=== PATIENT | female | born 2000 | race Two or more races ===

== ENCOUNTER 2024-08-22 19:29 | Emergency (ER) | payer MEDICAID, SELFPAY ==
[2024-08-22 19:45] VITALS: BP 145/79; PULSE 89; RESP 18; TEMP 36.8; O2SAT 98
--- NOTE | 2024-08-22 19:50 | XR_ITS ---
Examination: Complete OB ultrasound, less than 14 weeks, transabdominal Date and time of exam: August 22, 2024 at 10:32 PM Indications vaginal bleeding and pelvic cramping beginning 4 hours ago Technique: Obstetrical ultrasound images less than 14 weeks performed via transabdominal imaging Findings: A normal shaped single intrauterine gestation is present in the uterus. pole 3.7 cm corresponds to 10 weeks 5 days gestational age Cardiac motion 167 BPM Posterior uterine mass 3.7 cm Ovaries obscured by bowel gas Ultrasonographic survey of visible and placental structures unremarkable. Amniotic fluid volume appears appropriate for this estimated gestational age. Impression: Viable intrauterine gestation 10 weeks 5 days.
[2024-08-22 20:31] LABS: Collection Type, Urine Clean Catch
[2024-08-22 20:48] LABS: Bilirubin,Urine Negative (Negative); Blood,Urine Negative (Negative); Clarity,Urine Turbid (Clear/Hazy); Color,Urine Yellow (Lt Yel-Yel); Glucose, Urine Negative (Negative); Hyaline Casts,Urine < 1 /hpf (0-1); Ketones,Urine Negative (Negative); Leukocyte Esterase,Urine Positive (Negative); Nitrite,Urine Negative (Negative); PH,Urine 5.5 (5.0-7.0); Protein,Urine Trace (Neg - Trace); RBC,Urine 3 /hpf (0-3); Specific Gravity,Urine 1.028 (1.001-1.035); Squamous Epithelial Cell,Urine 13 /hpf (0-5); Urobilinogen,Urine Negative mg/dL (0.0-1.0); WBC,Urine 3 /hpf (0-5)
--- NOTE | 2024-08-22 20:48 | PD.EDVAGBL ---
ED OB Contraction Preg RMI/HPI General Chief complaint: Vaginal Bleeding Stated complaint: 12 WEEKS , VAGINAL BLEEDING Time Seen by Provider: 08/22/24 19:49 Arrival date/time: 08/22/24 19:29 24F at approximately 12 weeks and with no significant PMH presents to ED with 1 day of vaginal bleeding and pelvic cramping. Patient denies dysuria. Limitations: no limitations Related Data Allergies Allergy/AdvReac Type Severity Reaction Status Date / Time No Known Allergies Allergy Verified 08/22/24 19:32 Review of Systems Review of Systems Systems Reviewed: All systems reviewed, normal except as documented Constitutional Constitutional: Reports system reviewed and no additional complaints, except as documented, Denies fever(s) and Denies headache(s) ENT Ears, Nose, Mouth, and Throat: Denies disequilibrium and Denies headache(s) Cardiovascular Cardiovascular: Reports system reviewed and no additional complaints, except as documented, Denies chest pain and Denies dyspnea Respiratory Respiratory: Reports system reviewed and no additional complaints, except as documented, Denies cough and Denies dyspnea Gastrointestinal Gastrointestinal: Reports system reviewed and no additional complaints, except as documented, Denies abdominal pain, Denies nausea and Denies vomiting Genitourinary Genitourinary: Reports as per HPI, Reports abnormal vaginal bleeding and Reports pelvic pain Neurologic Neurologic: Reports system reviewed and no additional complaints, except as documented, Denies confusion, Denies disequilibrium and Denies headache(s) Psychiatric Psychiatric: Denies confusion Past Medical History Social History SMOKING STATUS: Never smoker ED Exam General Limitations: Present no limitations General appearance: Present alert and in no apparent distress Head Head exam: Present atraumatic Eye Eye exam: Present normal appearance, PERRL and EOMI ENT ENT exam: Present normal exam, normal oropharynx and mucous membranes moist Neck Neck exam: Present normal inspection, full ROM and trachea midline Chest Chest inspection: Present normal inspection and symmetric chest wall rise Respiratory Respiratory exam: Present normal lung sounds bilaterally Cardiovascular Cardiovascular exam: Present regular rate, normal rhythm and normal heart sounds Abdominal Exam Abdominal exam: Present soft and normal bowel sounds Extremities Exam Extremities exam: Present normal inspection and full ROM Back Exam Back exam: Present normal inspection and full ROM Neurological Exam Neurological exam: Present alert, oriented X3 and CN II-XII intact Psychiatric Psychiatric exam: Present normal affect and normal mood Skin Skin exam: Present warm, dry, intact and normal color Course Quality Measures none Orders Category Date Time Status US OB <= 14 weeks fetus Stat Exams 08/22/24 19:50 Completed ABO/RH Type Stat Lab 08/22/24 20:34 Completed Beta HCG,Quantitative Stat Lab 08/22/24 20:34 Completed CBC Stat Lab 08/22/24 20:34 Completed CMP [Comprehensive Metabolic Panel] Stat Lab 08/22/24 20:34 Completed UA [Urinalysis] Stat Lab 08/22/24 20:25 Completed Urine Culture Stat Lab 08/22/24 19:50 Received Vital Signs Vital signs: Vital Signs Temperature 98.2 F 08/22/24 19:45 Pulse Rate 89 08/22/24 19:45 Respiratory Rate 18 08/22/24 19:45 Blood Pressure 145/79 H 08/22/24 19:45 Pulse Oximetry (%) 98 08/22/24 19:45 Oxygen Delivery Method Room Air 08/22/24 19:45 O2 at 98% on RA and WNLs Vaginal Bleeding MDM Narrative MDM Narrative: 24F at approximately 12 weeks and with no significant PMH presents to ED with 1 day of vaginal bleeding and pelvic cramping. Patient denies dysuria. Physical exam reveals well-appearing female. Patient is afebrile, calm, and alert. US normal IUP with normal FHR. Beta HCG WNLs. No leukocytosis or gross anemia. CMP unremarkable. UA contaminated but no gross UTI. Blood type A+/ US did not a 3.7 cm uterine mass, which is likely a fibroid, though radiologist did not comment on it. This is likely cause of bleeding. Patient data External records reviewed:: None Clinical information provided by:: patient Social determinants that could affect healthcare access:: none Patient has the following chronic illnesses:: none How is presenting disease/condition affected by chronic disease/condition?: no chronic disease Evaluation data The following diagnostics were reviewed and interpreted by me:: lab results and radiology exam(s) Lab and/or radiology exams considered but not ordered:: ordered Interpretation Summary: above Medications / Prescriptions Medications or Prescriptions considered but not ordered:: not ordered Medication administrations:: n/a Consultations Consultation(s) initiated? (list below): No Diagnosis Vaginal Bleeding Differential Diagnosis: missed , threatened , dysfunctional uterine bleeding, menometrorrhagia, incomplete , ectopic without intrauterine and vaginal bleeding Most likely diagnosis given after review of the tests above:: vaginal bleeding Admission Indicated Admission indicated?: not indicated Admission Request Was there a request for admission?: No Disposition Plan Disposition Plan: Discharge Discharge Attestation Discharge Attestation: The patient and all family members were given an opportunity to ask questions and understood the discharge instructions. Discharge instructions specifically effects, indications for sooner follow up or return to the emergency department, and the expected course of current diagnosis. Patient condition: Stable Discharge Plan Plan Patient Disposition: HOME (Self Care) Disposition Comment: Stable Prescriptions/Referrals Referrals: Dinh Marin MD [Primary Care Provider] - In 1 week Problem List Clinical Impression: Vaginal bleeding Patient/Caregiver Discharge Instructions Education Materials: Understanding Uterine Bleeding Additional Instructions: Please follow-up with PCP/OBGYN within 24-48 hours and return immediately if symptoms worsen. Print Language: Mauritanian Stand Alone Forms: Patient Portal Info Letter LYLY/RADHA Supervising Physician LYLY/RADHA Supervising Physician: Dr. Torrez
[2024-08-22 21:08] LABS: Basophils % (Auto) 0 % (0-2.5); Eosinophils # (Auto) 0.1 Thou/mm3 (0.0-0.5); Eosinophils % (Auto) 1 % (0-10); Hematocrit 35.5 % (36.0-46.0); Immature Granulocytes % (Auto) 0 % (0-0); Immature Granulocytes Auto 0.04 Thou/mm3 (0.00-0.00); Lymphocytes # (Auto) 3.2 Thou/mm3 (1.0-4.8); Lymphocytes % (Auto) 31 % (10-50); Mean Corpuscular HGB Conc 33.8 g/dl (31.0-37.0); Mean Corpuscular Hemoglobin 30.8 pg (25.0-35.0); Mean Corpuscular Volume 91 fL (80-100); Monocytes # (Auto) 0.6 Thou/mm3 (0.0-0.8); Monocytes % (Auto) 6 % (0-12); Neutrophils # (Auto) 6.3 Thou/mm3 (1.8-7.7); Neutrophils % (Auto) 61 % (37-80); Nucleated Red Blood Cell % 0 /100 WBC (0); Platelet Count 227 Thou/mm3 (140-440); RDW Standard Deviation 41.6 fL (36.4-46.3); White Blood Count 10.2 Thou/mm3 (3.6-11.0)
[2024-08-22 21:45] LABS: Alanine Aminotransferase 8 U/L (10-49); Albumin, Serum 4.2 gm/dL (3.5-5.0); Albumin/Globulin Ratio 1.5 (1.2-2.2); Alkaline Phosphatase 66 U/L (46-116); Anion Gap 8 (7-16); Aspartate Amino Transferase 10 U/L (0-34); BUN/Creatinine Ratio 10 Ratio (12-20); Bilirubin,Total 0.3 mg/dL (0.3-1.2); Blood Urea Nitrogen 6 mg/dL (9-23); Calcium 9.4 mg/dL (8.3-10.6); Calcium (Corrected) 9.4 mg/dL (8.5-10.1); Carbon Dioxide 22.2 mMol/L (20.0-31.0); Chloride 105 mMol/L (98-107); Creatinine (Component) 0.6 mg/dL (0.6-1.3); Estimated Creatinine Clearance 191.9 mL/min (>60); Globulin 2.8 gm/dL (2.3-3.5); Glucose 92 mg/dL (74-106); Osmolality,Calculated 267 (275-295); Potassium 3.8 mMol/L (3.4-5.1); Sodium 135 mMol/L (136-145); eGFR > 60 See Note
[2024-08-22 22:16] LABS: Beta HCG,Quantitative 95707 mIU/mL (<5.0)
== END 2024-08-23 00:26 | disposition home or self-care (01) ==
PROVIDERS: Physician Assistant; Emergency Provider Emergency Medicine; PCP Family Medicine
DX: O20.9 Hemorrhage in early pregnancy, unspecified (principal); Z3A.12 12 weeks gestation of pregnancy
CPT/HCPCS: 36415; 76801; 80053; 81001; 84702; 85025; 86900; 86901; 87086; 99284

== ENCOUNTER 2024-09-02 13:51 | Outpatient (AMB) | payer MEDICAID, SELFPAY ==
--- NOTE | 2024-09-02 14:08 | AMB.OBVISIT ---
Vital Signs 09/02/24 14:16 Height 1.68 m Height Method Measured Weight 84.141 kg Weight Measurement Method Standing Scale BMI 29.9 BP 121/77 Blood Pressure Source Automatic Cuff Blood Pressure Location Left Upper Arm Position Sitting Respiration 18 Pulse 90 Pulse Source Monitor Temp 97.7 F Temp Source Oral Pulse Oximetry (%) 97 Oxygen Delivery Method Room Air Allergies/Home Meds Allergies & Medications Allergies No Known Allergies Allergy (Verified 09/02/24 14:17) Medication Reconciliation No Known Home Medications 09/02/24 [History Confirmed 09/02/24] Intake Visit Data Collection New Patient or Established: Established Patient (seen at [facility] within 3 years) Reason for Visit:: INITIAL CARE Seen by Clinical Staff ONLY (RN/MA): No 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 1. Little interest or pleasure in doing things: not at all 2. Feeling down, depressed, or hopeless: not at all Total score: 0 PHQ-9 3. Trouble falling or staying asleep, or sleeping too much: Not at all 4. Feeling tired or having little energy: Not at all 5. Poor appetite or overeating: Not at all 6. Feeling bad about yourself - or that you are a failure or have let yourself or your family down: Not at all 7. Trouble concentrating on things, such as reading the newspaper or watching television: Not at all 8. Moving or speaking so slowly that other people could have noticed? - Or the opposite - being so fidgety or restless that you have been moving around a lot more than usual: not at all 9. Thoughts that you would be better off or of hurting yourself in some way: Not at all Total score: 0 Source: Developed by Drs. Tree Guidry, Annie Deleon, Hamlet Luna and colleagues, with an educational tasneem from [employer] Depression screen completed yes Social History Living Situation History Marital Status: Lives With: Family Housing: House Tobacco History Smoking Status: Never smoker Second Hand Smoke Exposure: No Alcohol History Alcohol Intake: Current Domestic Abuse History Do You Feel Safe at Home: Yes Past Medical History Past Medical History Have you ever been diagnosed with any of the following:
[2024-09-02 14:16] VITALS: BP 121/77; PULSE 90; RESP 18; TEMP 36.5; O2SAT 97; BMI 29.9
--- NOTE | 2024-09-02 14:22 | OBCLNT_ITS ---
Vital Signs 09/02/24 14:16 09/02/24 14:25 Height 1.68 m Height Method Measured Weight 84.141 kg Weight Measurement Method Standing Scale BMI 29.9 BP 121/77 121/77 Blood Pressure Source Automatic Cuff Blood Pressure Location Left Upper Arm Position Sitting Respiration 18 18 Pulse 90 90 Pulse Source Monitor Temp 97.7 F 97.7 F Temp Source Oral Pulse Oximetry (%) 97 97 Oxygen Delivery Method Room Air Allergies/Home Meds Allergies & Medications Allergies No Known Allergies Allergy (Verified 09/02/24 14:17) Medication Reconciliation doxylamine 10 mg-pyridoxine (vit B6) 10 mg tablet,delayed release (Diclegis) 1 tab PO BID 30 days #60 tabs 09/02/24 [Rx] ferrous sulfate 325 mg (65 mg iron) tablet 325 mg PO BID 30 days #60 tabs 09/02/24 [Rx] Intake Visit Data Collection New Patient or Established: Established Patient (seen at [facility] within 3 years) Reason for Visit:: INITIAL CARE Seen by Clinical Staff ONLY (RN/MA): No 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 1. Little interest or pleasure in doing things: not at all 2. Feeling down, depressed, or hopeless: not at all Total score: 0 PHQ-9 3. Trouble falling or staying asleep, or sleeping too much: Not at all 4. Feeling tired or having little energy: Not at all 5. Poor appetite or overeating: Not at all 6. Feeling bad about yourself - or that you are a failure or have let yourself or your family down: Not at all 7. Trouble concentrating on things, such as reading the newspaper or watching television: Not at all 8. Moving or speaking so slowly that other people could have noticed? - Or the opposite - being so fidgety or restless that you have been moving around a lot more than usual: not at all 9. Thoughts that you would be better off or of hurting yourself in some way: Not at all Total score: 0 Source: Developed by Drs. Tree Guidry, Annie Deleon, Hamlet Luna and colleagues, with an educational tasneem from [employer]. Depression screen completed yes Social History Living Situation History Marital Status: Lives With: Family Housing: House Tobacco History Smoking Status: Never smoker Second Hand Smoke Exposure: No Alcohol History Alcohol Intake: Never Domestic Abuse History Do You Feel Safe at Home: Yes Past Medical History Past Medical History Have you ever been diagnosed with any of the following: History of Present Illness HPI Narrative 24 yo for OBI. Happy with + preg test. patient had [facility] visit 08/22 for vag b leeding. sono: viable 10w5. LMP 06/26/24. EDC by sono : 03/17/25. no bleeding now. no c/o nausea . no PMH,no social habit, no surgery, taking PNV and folic acid OB Initial Visit OB Flowsheet OB Flowsheet Initial Weight: Not Recorded Date -?-?-?-?-?-?-?-?-?-?-?-?- EGA Weight Edema CTX Effacement BP Fundal ht Pres Dilation Effacement Station Visit Note Alb Glu FHR Mov 09/02/24 -?-?-?-?-?-?-?-?-?-?-?-?- 12w 2d 84.141 kg absent absent 121/77 121/77 12 24 yo g2p 0 for OBI, no bleeding or sab complaints. No PMH,no Social habit,no surgery. sono 08/22: fibroid 3.7 uterus mass. schedule Mfm sono, ob panel, NIPT,carrier screen today 24 yo for OBI, no bleed ing or sab complaints. No PMH,no Social habit,no surgery. sono 08/22: fibroid 3.7 uterus mass. schedule Mfm sono, ob panel, NIPT,carrier screen today, start iron bid, diclegesis for nausea bid 145 absent Menstrual History Menstrual reliability: definite Flow: normal Menstrual regularity: regular Monthly: Yes Age at menarche: 14 On control pills at conception: No Associated symptoms (LMP): Reports fatigue and breast tenderness OB History : 1 Infection History & Risk Evaluation History of STDs: none HIV risk evaluation: low risk Hepatitis B risk evaluation: low risk Patient or partner has history of Genital Herpes: No Genetic Screening & History Genetic Screening/Teratology Counseling - Includes patient, baby's father, or anyone in either family with: 1. Patient's age 35 years or older as of estimated date of delivery: No 2. Thalassemia (French, Syrian, Mediterranean, or Background); MCV less than 80: No 3. Neural Tube Defect (Meningomyelocele, Spina Bifida, or Anencephaly): No 4. Congenital Heart Defect: No 5. Down Syndrome: No 6. Nitin-Sachs (Ashkenazi Presybeterian, Cajun, Setswana Citizen Of [place]): No 7. Niecy Disease (Ashkenazi Presybeterian): No 8. Familial Dysautonomia (Ashkenazi Presybeterian): No 9. Sickle Cell Disease or Trait (): No 10. Hemophilia or other blood disorders: No 11. Muscular Dystrophy: No 12. Cystic Fibrosis: No 13. Mercer's Chorea: No 14. Mental Retardation/Autism: No 15. Other inherited genetic or chromosomal disorder: No 16. Maternal Metabolic Disorder (EG,TYPE 1 Diabetes, PKU): No 17. Patient or baby's father had a child with defects not listed above: No 18. Recurrent loss or a stillbirth: No 19. Medications (including supplements, vitamins, herbs or otc drugs)/illicit/recreational drugs/alcohol since last menstrual period: No 20. Any other: No Infection History 1. Live with someone with TB or exposed to TB: No 2. Rash or viral illness since last menstrual period: No 3. Hepatitis B,C: No Other (see comments) Source: [employer] [place] Review of Systems Review of Systems Systems Reviewed: All systems reviewed, normal except as documented Constitutional Constitutional: Reports fatigue Endocrine Endocrine: Reports fatigue Exam General Limitations: no limitations General Appearance: alert, in no apparent distress, comfortable, cooperative, he althy appearing, well developed and well groomed Chest Chest inspection: Present normal inspection and symmetric chest wall rise Resp Respiratory exam: Present normal lung sounds bilaterally Card Cardiovascular exam: Present regular rate, normal rhythm and normal heart sounds Abdominal Abdominal exam: Present soft and normal bowel sounds Psych Psychiatric exam: Present normal affect and normal mood Assessment & Plan Diagnosis / Problem List (1) Encounter for supervision of normal first , second trimester: Status: Acute Plan start iron 325 bid, diclegesis as needed bid for nausea. discuss comfort measure. sab precaution, odered OB panel. schedule mfm anatomy scan, continue PNV, rtc 4 weeks Additional Plan Follow Up: 4 Weeks (obc) Office Procedures OB Clinic LOC & Office Proc's Nursing/Assessment Patient Status: Established Patient OB Clinic Nursing Assessment: Medication Reconciliation, Update PMH in EMR and Vital Signs OB Clinic Coordination of Care: Complex Care and Chronic Disease 1-5, Consent,records obtained, informed consent, Education Simp Pt/Fam, Lab and Imaging orders, Results/Orders obtained and Staff clarify orders Special Needs: Heart tones Miscellaneous Interventions: Blood/Urine Collection Established Patient Charge Established Patient Point Assignment: 165 Established Patient Point Charge: EP Level 5 (160-above)
[2024-09-02 14:25] VITALS: BP 121/77; PULSE 90; RESP 18; TEMP 36.5; O2SAT 97
== END 2024-09-02 14:48 | disposition home or self-care (01) ==
LOC: HODSOBC 13:51
PROVIDERS: PCP Advanced Practice Midwife; Referring Provider Advanced Practice Midwife; Supervising Provider Obstetrics & Gynecology; Visit Provider Advanced Practice Midwife
DX: Z34.81 Encounter for supervision of other normal pregnancy, first trimester (principal); Z3A.12 12 weeks gestation of pregnancy
CPT/HCPCS: 81001; 99215; G0463

== ENCOUNTER 2024-09-15 13:26 | Outpatient (AMB) | payer MEDICAID, SELFPAY ==
[2024-09-15 13:42] VITALS: BP 123/70; PULSE 80; RESP 18; TEMP 36.2; O2SAT 98; BMI 30.2
--- NOTE | 2024-09-15 13:42 | AMB.GYNCLNOT ---
Vital Signs 09/15/24 13:42 Height 1.68 m Height Method Stated Weight 85.445 kg Weight Measurement Method Standing Scale BMI 30.2 BP 123/70 Blood Pressure Source Automatic Cuff Blood Pressure Location Left Upper Arm Position Sitting Respiration 18 Pulse 80 Pulse Source Monitor Temp 97.2 F Temp Source Oral Pulse Oximetry (%) 98 Oxygen Delivery Method Room Air Allergies/Home Meds Allergies & Medications Allergies No Known Allergies Allergy (Verified 09/15/24 13:43) Medication Reconciliation doxylamine 10 mg-pyridoxine (vit B6) 10 mg tablet,delayed release (Diclegis) 1 tab PO BID 30 days #60 tabs 09/02/24 [Rx Confirmed 09/15/24] ferrous sulfate 325 mg (65 mg iron) tablet 325 mg PO BID 30 days #60 tabs 09/02/24 [Rx Confirmed 09/15/24] Intake Visit Data Collection New Patient or Established: Established Patient (seen at [facility] within 3 years) Reason for Visit:: LAB RESULTS Seen by Clinical Staff ONLY (RN/MA): No 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 Do You Feel Safe at Home: Yes Authorities Contacted: N/A PCP or OBGYN visit in last 3 months: Yes Date of Last PCP or OBGYN visit: 09/02/24 Hx Now: Yes Are you currently on any form of Control: No Pain Present Currently: No Pain Scale Used: Martinez-Whatley/Numerical Pain scale:: 0 Smoking Status Smoking Status: Never smoker 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 1. Little interest or pleasure in doing things: not at all 2. Feeling down, depressed, or hopeless: not at all Total score: 0 PHQ-9 3. Trouble falling or staying asleep, or sleeping too much: Not at all 4. Feeling tired or having little energy: Not at all 5. Poor appetite or overeating: Not at all 6. Feeling bad about yourself - or that you are a failure or have let yourself or your family down: Not at all 7. Trouble concentrating on things, such as reading the newspaper or watching television: Not at all 8. Moving or speaking so slowly that other people could have noticed? - Or the opposite - being so fidgety or restless that you have been moving around a lot more than usual: not at all 9. Thoughts that you would be better off or of hurting yourself in some way: Not at all Total score: 0 If you checked off any problems, how difficult have these problems made it for you to do your work, take care of things at home, or get along with other people?: not difficult at all Source: Developed by Drs. Tree Guidry, Annie Deleon, Hamlet Luna and colleagues, with an educational tasneem from [employer]. Depression screen completed yes Social History Living Situation History Lives With: Family Housing: House Tobacco History Smoking Status: Never smoker Second Hand Smoke Exposure: No Alcohol History Alcohol Intake: Never Domestic Abuse History Do You Feel Safe at Home: Yes Office Procedures OB Clinic LOC & Office Proc's Nursing/Assessment Patient Status: Established Patient OB Clinic Nursing Assessment: Medication Reconciliation, Update PMH in EMR and Vital Signs OB Clinic Coordination of Care: Education Complex Pt/Fam, Consent,records obtained, informed consent, Results/Orders obtained and Staff clarify orders Special Needs: Heart tones Established Patient Charge Established Patient Point Assignment: 100 Established Patient Point Charge: EP Level 3 (80-115)
--- NOTE | 2024-09-15 13:56 | OBCLNT_ITS ---
Vital Signs 09/15/24 13:42 Height 1.68 m Height Method Stated Weight 85.445 kg Weight Measurement Method Standing Scale BMI 30.2 BP 123/70 Blood Pressure Source Automatic Cuff Blood Pressure Location Left Upper Arm Position Sitting Respiration 18 Pulse 80 Pulse Source Monitor Temp 97.2 F Temp Source Oral Pulse Oximetry (%) 98 Oxygen Delivery Method Room Air Allergies/Home Meds Allergies & Medications Allergies No Known Allergies Allergy (Verified 09/15/24 13:43) Medication Reconciliation doxylamine 10 mg-pyridoxine (vit B6) 10 mg tablet,delayed release (Diclegis) 1 tab PO BID 30 days #60 tabs 09/02/24 [Rx Confirmed 09/15/24] ferrous sulfate 325 mg (65 mg iron) tablet 325 mg PO BID 30 days #60 tabs 09/02/24 [Rx Confirmed 09/15/24] azithromycin 500 mg tablet 1,000 mg (2 x 500 mg) PO QDAY 1 day #2 tabs 09/15/24 [Rx] azithromycin 500 mg tablet 1,000 mg (2 x 500 mg) PO QDAY 1 day #2 tabs 09/15/24 [Rx] Intake Visit Data Collection New Patient or Established: Established Patient (seen at [facility] within 3 years) Reason for Visit:: LAB RESULTS English Drawer Required: No Do You Feel Safe at Home: Yes Authorities Contacted: N/A PCP or OBGYN visit in last 3 months: Yes Hx Now: Yes Are you currently on any form of Control: No Pain Present Currently: No Pain Scale Used: Martinez-Whatley/Numerical Pain scale:: 0 Smoking Status Smoking Status: Never smoker Questionnaires Covid-19 Vaccine Questionnaire Has patient been vacinated for Covid-19 Have you been vacinated for Covid-19: Yes PHQ-9 PHQ-2 Over the last 2 weeks, how often have you been bothered by any of the following problems? 1. Little interest or pleasure in doing things: not at all 2. Feeling down, depressed, or hopeless: not at all Total score: 0 PHQ-9 3. Trouble falling or staying asleep, or sleeping too much: Not at all 4. Feeling tired or having little energy: Not at all 5. Poor appetite or overeating: Not at all 6. Feeling bad about yourself - or that you are a failure or have let yourself or your family down: Not at all 7. Trouble concentrating on things, such as reading the newspaper or watching television: Not at all 8. Moving or speaking so slowly that other people could have noticed? - Or the opposite - being so fidgety or restless that you have been moving around a lot more than usual: not at all 9. Thoughts that you would be better off or of hurting yourself in some way: Not at all Total score: 0 If you checked off any problems, how difficult have these problems made it for you to do your work, take care of things at home, or get along with other people?: not difficult at all Source: Developed by Drs. Tree Guidry, Annie Deleon, Hamlet Luna and colleagues, with an educational tasneem from [employer]. Depression screen completed yes Social History Living Situation History Lives With: Family Housing: House Tobacco History Smoking Status: Never smoker Second Hand Smoke Exposure: No Alcohol History Alcohol Intake: Never Domestic Abuse History Do You Feel Safe at Home: Yes Care OB Visit Log OB Flowsheet Initial Weight: Not Recorded Date -?-?-?-?-?-?-?-?-?-?-?-?- EGA Weight Edema CTX Effacement BP Fundal ht Pres Dilation Effacement Station Visit Note Alb Glu FHR Mov 09/02/24 -?-?-?-?-?-?-?-?-?-?-?-?- 12w 2d 84.141 kg absent absent 121/77 121/77 12 24 yo g2p 0 for OBI, no bleeding or sab complaints. No PMH,no Social habit,no surgery. sono 08/22: fibroid 3.7 uterus mass. schedule Mfm sono, ob panel, NIPT,carrier screen today 24 yo for OBI, no bleed ing or sab complaints. No PMH,no Social habit,no surgery. sono 08/22: fibroid 3.7 uterus mass. schedule Mfm sono, ob panel, NIPT,carrier screen today, start iron bid, diclegesis for nausea bid 145 absent 09/15/24 -?-?-?-?-?-?-?-?-?-?-?-?- 14w 1d 85.445 kg absent absent 123/70 14 patient here with partner for + CT. discussed + CT with patient. I also discussed other labs and NIPT. Zithromax 1 gm to patient and partner. no sex x 1 week. condom x 2 week. discuss safe sex practices. RTC 4 week for JENNIE, preg verification given. mfm appointment pending, RTC 4 week. wrong dates, discussed dates 135 absent KARTHIKEYAN Calculator Estimated Delivery Date Method Current WG Current Estimate 03/15/25 Ultrasound #1 14w 1d Other Estimates 04/02/25 LMP (Certain) 11w 4d Notes Visit Date: 09/15/24 Last Updated by: Anjana Foster CNM 09/08/24: +CT/GC-, A+,abs-, rpr;;nr, rub imm, hbsag-, hiv-, HC-, , NIPT-/boy, carrier screen- Office Procedures OB Clinic LOC & Office Proc's Nursing/Assessment Patient Status: Established Patient OB Clinic Nursing Assessment: Medication Reconciliation, Update PMH in EMR and V ital Signs OB Clinic Coordination of Care: Education Complex Pt/Fam, Consent,records obtained, informed consent, Results/Orders obtained and Staff clarify orders Special Needs: Heart tones Established Patient Charge Established Patient Point Assignment: 100 Established Patient Point Charge: EP Level 3 (80-115) Assessment & Plan Diagnosis / Problem List (1) High risk case management patient in first trimester: Status: Acute Plan discuss labs, discuss +CT. zithromax 1 gm to patient and partner. no sex x 1 week. condom x 2 week, discuss safe sex. mfm appointment pending, sab precaution, rtc 4 week for JENNIE Additional Plan Follow Up: 4 Weeks (obc)
== END 2024-09-15 14:50 | disposition home or self-care (01) ==
LOC: HODSOBC 13:26
PROVIDERS: PCP Advanced Practice Midwife; Referring Provider Advanced Practice Midwife; Supervising Provider Advanced Practice Midwife; Visit Provider Advanced Practice Midwife
DX: O09.92 Supervision of high risk pregnancy, unspecified, second trimester (principal); Z3A.14 14 weeks gestation of pregnancy
CPT/HCPCS: 99213; G0463

== ENCOUNTER 2024-10-02 10:52 | Outpatient (AMB) | payer MEDICAID, SELFPAY ==
[2024-10-02 11:08] VITALS: BP 114/75; PULSE 79; RESP 17; TEMP 36.6; O2SAT 98; BMI 30.5
--- NOTE | 2024-10-02 11:08 | AMB.OBVISIT ---
Vital Signs 10/02/24 11:08 Height 1.68 m Height Method Stated Weight 85.899 kg Weight Measurement Method Standing Scale BMI 30.5 BP 114/75 Blood Pressure Source Automatic Cuff Blood Pressure Location Right Upper Arm Position Sitting Respiration 17 Pulse 79 Pulse Source Monitor Temp 97.8 F Temp Source Temporal Artery Scan Pulse Oximetry (%) 98 Oxygen Delivery Method Room Air Allergies/Home Meds Allergies & Medications Allergies No Known Allergies Allergy (Verified 10/02/24 11:09) Medication Reconciliation vitamin-ferrous fumarate 28 mg iron-folic acid 800 mcg tablet ( Vitamins with Minerals) 1 tab PO QDAY 60 days #60 tabs 10/02/24 [Rx] Intake Visit Data Collection New Patient or Established: Established Patient (seen at [facility] within 3 years) Reason for Visit:: OBC Seen by Clinical Staff ONLY (RN/MA): No Tipping Machine Operator Automatic Required: No Do You Feel Safe at Home: Yes Authorities Contacted: N/A PCP or OBGYN visit in last 3 months: Yes Date of Last PCP or OBGYN visit: 09/15/24 Hx Now: Yes Are you currently on any form of Control: No Pain Present Currently: No Pain Scale Used: Martinez-Whaltey/Numerical Pain scale:: 0 Smoking Status Smoking Status: Never smoker Questionnaires Covid-19 Vaccine Questionnaire Has patient been vacinated for Covid-19 Have you been vacinated for Covid-19: No PHQ-9 PHQ-2 Over the last 2 weeks, how often have you been bothered by any of the following problems? 1. Little interest or pleasure in doing things: not at all 2. Feeling down, depressed, or hopeless: not at all Total score: 0 PHQ-9 3. Trouble falling or staying asleep, or sleeping too much: Not at all 4. Feeling tired or having little energy: Not at all 5. Poor appetite or overeating: Not at all 6. Feeling bad about yourself - or that you are a failure or have let yourself or your family down: Not at all 7. Trouble concentrating on things, such as reading the newspaper or watching television: Not at all 8. Moving or speaking so slowly that other people could have noticed? - Or the opposite - being so fidgety or restless that you have been moving around a lot more than usual: not at all 9. Thoughts that you would be better off or of hurting yourself in some way: Not at all Total score: 0 If you checked off any problems, how difficult have these problems made it for you to do your work, take care of things at home, or get along with other people?: not difficult at all Source: Developed by Drs. Tree [employer], Annie Deleon, Hamlet Luna and colleagues, with an educational tasneem from [employer]. Depression screen completed yes Social History Living Situation History Lives With: Family Housing: House Tobacco History Smoking Status: Never smoker Second Hand Smoke Exposure: No Alcohol History Alcohol Intake: Never Domestic Abuse History Do You Feel Safe at Home: Yes Care OB Visit Log OB Flowsheet Initial Weight: Not Recorded Date <del>?</del> EGA Weight BP Alb Glu CTX Pres Fundal ht FHR Mov Dilation Station Effacement Hx Notes Visit Note 09/02/24 <del>?</del> 12w 2d 84.141 kg 121/77 121/77 absent 12 145 absent 24 yo for OBI, no bleeding or sab complaints. No PMH,no Social habit,no surgery. sono 08/22: fibroid 3.7 uterus mass. schedule Mfm sono, ob panel, NIPT,carrier screen today 24 yo for OBI, no bleeding or sab complaints. No PMH,no Social habit,no surgery. sono 08/22: fibroid 3.7 uterus mass. schedule Mfm sono, ob panel, NIPT,carrier screen today, start iron bid, diclegesis for nausea bid 09/15/24 <del>?</del> 14w 1d 85.445 kg 123/70 absent 14 135 absent patient here with partner for + CT. discussed + CT with patient. I also discussed other labs and NIPT. Zithromax 1 gm to patient and partner. no sex x 1 week. condom x 2 week. discuss safe sex practices. RTC 4 week for JENNIE, preg verification given. mfm appointment pending, RTC 4 week. wrong dates, discussed dates 10/02/24 <del>?</del> 16w 4d 85.899 kg 114/75 absent unknown 16 146 absent + fm, denies LOF,bleeding or cramps. taking PNV JENNIE for chlamydia NV, refill PNV, AFP today . anatomy scan 11/07/24. rtc 4 week, sab precaution KARTHIKEYAN Calculator Estimated Delivery Date Method Current WG Current Estimate 03/15/25 Ultrasound #1 16w 4d Other Estimates 04/02/25 LMP (Certain) 14w 0d Notes Visit Date: 09/15/24 Last Updated by: Anjana Foster CNM 09/08/24: +CT/GC-, A+,abs-, rpr;;nr, rub imm, hbsag-, hiv-, HC-, , NIPT-/boy, carrier screen- Office Procedures OB Clinic LOC & Office Proc's Nursing/Assessment Patient Status: Established Patient OB Clinic Nursing Assessment: Medication Reconciliation, Update PMH in EMR and Vital Signs OB Clinic Coordination of Care: Complex Care and Chronic Disease 1-5, Consent,records obtained, informed consent, Education Simp Pt/Fam and Staff clarify orders Special Needs: Heart tones Established Patient Charge Established Patient Point Assignment: 115 Established Patient Point Charge: EP Level 3 (80-115) Assessment & Plan Diagnosis / Problem List (1) Encounter for supervision of high risk in second trimester, antepartum: Status: Acute Plan discuss sab precaution and danger s/s. refill PNV, AFP today. keep anatomy scan 11/07/24. rtc [address] JENNIE Additional Plan Follow Up: 4 Weeks (obc)
== END 2024-10-02 11:48 | disposition home or self-care (01) ==
LOC: HODSOBC 10:52
PROVIDERS: PCP Advanced Practice Midwife; Referring Provider Advanced Practice Midwife; Supervising Provider Advanced Practice Midwife; Visit Provider Advanced Practice Midwife
DX: Z34.82 Encounter for supervision of other normal pregnancy, second trimester (principal); Z3A.16 16 weeks gestation of pregnancy
CPT/HCPCS: 99213; G0463

== ENCOUNTER 2024-11-06 10:32 | Outpatient (AMB) | payer MEDICAID, SELFPAY ==
[2024-11-06 10:49] VITALS: BP 126/76; PULSE 98; RESP 17; TEMP 36.9; O2SAT 97; BMI 31.8
--- NOTE | 2024-11-06 10:49 | AMB.OBVISIT ---
Vital Signs 11/06/24 10:49 Height 1.68 m Height Method Stated Weight 89.981 kg Weight Measurement Method Standing Scale BMI 31.8 BP 126/76 Blood Pressure Source Automatic Cuff Blood Pressure Location Right Upper Arm Position Sitting Respiration 17 Pulse 98 Pulse Source Monitor Temp 98.4 F Temp Source Temporal Artery Scan Pulse Oximetry (%) 97 Oxygen Delivery Method Room Air Allergies/Home Meds Allergies & Medications Allergies No Known Allergies Allergy (Verified 11/06/24 10:50) Medication Reconciliation vitamin-ferrous fumarate 28 mg iron-folic acid 800 mcg tablet ( Vitamins with Minerals) 1 tab PO QDAY 60 days #60 tabs 10/02/24 [Rx Confirmed 11/06/24] Intake Visit Data Collection New Patient or Established: Established Patient (seen at [facility] within 3 years) Reason for Visit:: OBC 21W 4D Seen by Clinical Staff ONLY (RN/MA): No Recruitment Assistant Required: No Do You Feel Safe at Home: Yes Authorities Contacted: N/A PCP or OBGYN visit in last 3 months: Yes Date of Last PCP or OBGYN visit: 10/02/24 Hx Now: Yes Are you currently on any form of Control: No Pain Present Currently: No Pain Scale Used: Martinez-Whatley/Numerical Smoking Status Smoking Status: Never smoker Questionnaires Covid-19 Vaccine Questionnaire Has patient been vacinated for Covid-19 Have you been vacinated for Covid-19: No PHQ-9 PHQ-2 Over the last 2 weeks, how often have you been bothered by any of the following problems? 1. Little interest or pleasure in doing things: not at all 2. Feeling down, depressed, or hopeless: not at all Total score: 0 PHQ-9 3. Trouble falling or staying asleep, or sleeping too much: Not at all 4. Feeling tired or having little energy: Not at all 5. Poor appetite or overeating: Not at all 6. Feeling bad about yourself - or that you are a failure or have let yourself or your family down: Not at all 7. Trouble concentrating on things, such as reading the newspaper or watching television: Not at all 8. Moving or speaking so slowly that other people could have noticed? - Or the opposite - being so fidgety or restless that you have been moving around a lot more than usual: not at all 9. Thoughts that you would be better off or of hurting yourself in some way: Not at all Total score: 0 If you checked off any problems, how difficult have these problems made it for you to do your work, take care of things at home, or get along with other people?: not difficult at all Source: Developed by Drs. Tree [employer], Annie Deleon, Hamlet Luna and colleagues, with an educational tasneem from [employer]. Depression screen completed yes Social History Living Situation History Marital Status: Life Partner Lives With: Family Housing: House Tobacco History Smoking Status: Never smoker Second Hand Smoke Exposure: No Alcohol History Alcohol Intake: Never Domestic Abuse History Do You Feel Safe at Home: Yes Care OB Visit Log OB Flowsheet Initial Weight: Not Recorded Date <del>?</del> EGA Weight BP Alb Glu CTX Pres Fundal ht FHR Mov Dilation Station Effacement Hx Notes Visit Note 09/02/24 <del>?</del> 12w 2d 84.141 kg 121/77 121/77 absent 12 145 absent 24 yo for OBI, no bleeding or sab complaints. No PMH,no Social habit,no surgery. sono 08/22: fibroid 3.7 uterus mass. schedule Mfm sono, ob panel, NIPT,carrier screen today 24 yo for OBI, no bleeding or sab complaints. No PMH,no Social habit,no surgery. sono 08/22: fibroid 3.7 uterus mass. schedule Mfm sono, ob panel, NIPT,carrier screen today, start iron bid, diclegesis for nausea bid 09/15/24 <del>?</del> 14w 1d 85.445 kg 123/70 absent 14 135 absent patient here with partner for + CT. discussed + CT with patient. I also discussed other labs and NIPT. Zithromax 1 gm to patient and partner. no sex x 1 week. condom x 2 week. discuss safe sex practices. RTC 4 week for JENNIE, preg verification given. mfm appointment pending, RTC 4 week. wrong dates, discussed dates 10/02/24 <del>?</del> 16w 4d 85.899 kg 114/75 absent unknown 16 146 absent + fm, denies LOF,bleeding or cramps. taking PNV JENNIE for chlamydia NV, refill PNV, AFP today . anatomy scan 11/07/24. rtc 4 week, sab precaution 11/06/24 <del>?</del> 21w 4d 89.981 kg 126/76 absent unknown 20 145 absent + fm, no c/o leaking,no bleeding. OCC uc, fetus active Nuswab for GC/CT JENNIE, [facility] appointment 11/07. discuss ptl precaution, increase fluid, discuss diet and weight. rtc 4 week obc KARTHIKEYAN Calculator Estimated Delivery Date Method Current WG Current Estimate 03/15/25 Ultrasound #1 21w 4d Other Estimates 04/02/25 LMP (Certain) 19w 0d Notes Visit Date: 09/15/24 Last Updated by: Anjana Foster CNM 09/08/24: +CT/GC-, A+,abs-, rpr;;nr, rub imm, hbsag-, hiv-, HC-, , NIPT-/boy, carrier screen- Office Procedures OB Clinic LOC & Office Proc's Nursing/Assessment Patient Status: Established Patient OB Clinic Nursing Assessment: Medication Reconciliation, Update PMH in EMR and Vital Signs OB Clinic Coordination of Care: Complex Care and Chronic Disease 1-5, Consent,records obtained, informed consent, Education Simp Pt/Fam and Staff clarify orders Special Needs: Heart tones Established Patient Charge Established Patient Point Assignment: 115 Established Patient Point Charge: EP Level 3 (80-115) Assessment & Plan Diagnosis / Problem List (1) Chronic candidiasis of vulva and vagina: Status: Acute (2) Encounter for supervision of high risk in second trimester, antepartum: Status: Acute Plan New swab today. Increase fluids and rest. Discussed diet and weight gain. [facility] appointment 11/07/2024. Discussed labor precautions. Return in 4 weeks OB check Additional Plan Follow Up: 4 Weeks (obc)
== END 2024-11-06 11:23 | disposition home or self-care (01) ==
PROVIDERS: Supervising Provider Advanced Practice Midwife; Visit Provider Advanced Practice Midwife
DX: O09.892 Supervision of other high risk pregnancies, second trimester (principal); O98.812 Other maternal infectious and parasitic diseases complicating pregnancy, second trimester; B37.32 Chronic candidiasis of vulva and vagina; Z3A.21 21 weeks gestation of pregnancy
CPT/HCPCS: 99213; G0463

== ENCOUNTER 2024-12-04 11:07 | Outpatient (AMB) | payer MEDICAID, SELFPAY ==
--- NOTE | 2024-12-04 11:18 | AMB.OBVISIT ---
Vital Signs 12/04/24 11:19 Height 1.68 m Height Method Measured Weight 93.157 kg Weight Measurement Method Standing Scale BMI 33.0 BP 120/75 Blood Pressure Source Automatic Cuff Blood Pressure Location Right Upper Arm Position Sitting Respiration 17 Pulse 94 Pulse Source Monitor Temp 97.8 F Temp Source Temporal Artery Scan Pulse Oximetry (%) 98 Oxygen Delivery Method Room Air Allergies/Home Meds Allergies & Medications Allergies No Known Allergies Allergy (Verified 12/04/24 11:19) Medication Reconciliation vitamin-ferrous fumarate 28 mg iron-folic acid 800 mcg tablet ( Vitamins with Minerals) 1 tab PO QDAY 60 days #60 tabs 10/02/24 [Rx Confirmed 12/04/24] PNV 153-FA 400 mcg-om3 35 mg-dha 25 mg-epa 5 mg-fish oil chew tablet ( Gummies) 1 tab PO QDAY 90 days #90 tabs 12/04/24 [Rx] ondansetron 4 mg disintegrating tablet 4 mg PO Q6H PRN nausea and vomiting #30 tabs 12/04/24 [Rx] Intake Visit Data Collection New Patient or Established: Established Patient (seen at [facility] within 3 years) Reason for Visit:: OBC Consent obtained for Telemed Visit: No Seen by Clinical Staff ONLY (RN/MA): No Restaurant Crew Required: No Do You Feel Safe at Home: Yes Authorities Contacted: N/A PCP or OBGYN visit in last 3 months: Yes Date of Last PCP or OBGYN visit: 11/06/24 Hx Now: Yes Are you currently on any form of Control: No Pain Present Currently: No Pain Scale Used: Martinez-Whatley/Numerical Pain scale:: 0 Smoking Status Smoking Status: Never smoker Questionnaires Covid-19 Vaccine Questionnaire Has patient been vacinated for Covid-19 Have you been vacinated for Covid-19: No PHQ-9 PHQ-2 Over the last 2 weeks, how often have you been bothered by any of the following problems? 1. Little interest or pleasure in doing things: not at all PHQ-9 8. Moving or speaking so slowly that other people could have noticed? - Or the opposite - being so fidgety or restless that you have been moving around a lot more than usual: not at all Source: Developed by Drs. Tree [employer], Annie Deleon, Hamlet Luna and colleagues, with an educational tasneem from [employer]. Social History Living Situation History Lives With: Family Housing: House Tobacco History Smoking Status: Never smoker Second Hand Smoke Exposure: No Alcohol History Alcohol Intake: Never Domestic Abuse History Do You Feel Safe at Home: Yes Care OB Visit Log OB Flowsheet Initial Weight: Not Recorded Date <del>?</del> EGA Weight BP Alb Glu CTX Pres Fundal ht FHR Mov Dilation Station Effacement Hx Notes Visit Note 09/02/24 <del>?</del> 12w 2d 84.141 kg 121/77 121/77 absent 12 145 absent 24 yo for OBI, no bleeding or sab complaints. No PMH,no Social habit,no surgery. sono 08/22: fibroid 3.7 uterus mass. schedule Mfm sono, ob panel, NIPT,carrier screen today 24 yo for OBI, no bleeding or sab complaints. No PMH,no Social habit,no surgery. sono 08/22: fibroid 3.7 uterus mass. schedule Mfm sono, ob panel, NIPT,carrier screen today, start iron bid, diclegesis for nausea bid 09/15/24 <del>?</del> 14w 1d 85.445 kg 123/70 absent 14 135 absent patient here with partner for + CT. discussed + CT with patient. I also discussed other labs and NIPT. Zithromax 1 gm to patient and partner. no sex x 1 week. condom x 2 week. discuss safe sex practices. RTC 4 week for JENNIE, preg verification given. mfm appointment pending, RTC 4 week. wrong dates, discussed dates 10/02/24 <del>?</del> 16w 4d 85.899 kg 114/75 absent unknown 16 146 absent + fm, denies LOF,bleeding or cramps. taking PNV JENNIE for chlamydia NV, refill PNV, AFP today . anatomy scan 11/07/24. rtc 4 week, sab precaution 11/06/24 <del>?</del> 21w 4d 89.981 kg 126/76 absent unknown 20 145 absent + fm, no c/o leaking,no bleeding. OCC uc, fetus active Nuswab for GC/CT JENNIE, [facility] appointment 11/07. discuss ptl precaution, increase fluid, discuss diet and weight. rtc 4 week obc 12/04/24 <del>?</del> 25w 4d 93.157 kg 120/75 absent unknown 25 145 absent Complains of increased nausea and vomiting. Patient reports the Diclegis was not helping so she asked mother for some Zofran and that seemed to help. Patient would like to start on Zofran. She complains of second trimester discomforts like a backache and ligament pain. Sometimes low pelvic pain. Patient had questions about disability plaque. Denies leaking or bleeding. Reports movement. Patient has a follow-up for maternal- medicine sono in 6 to 8 weeks. Third trimester labs today along with cystic fibrosis and spinal muscular atrophy screen. Discussed comfort measures for second trimester discomforts like yoga and Tylenol and massage for the back pain. Increase fluids. I started patient on Zofran 4 mg every 6 to 8 hours. Discussed diet and weight gain and return in 4 weeks OB check KARTHIKEYAN Calculator Estimated Delivery Date Method Current WG Current Estimate 03/15/25 Ultrasound #1 25w 4d Other Estimates 04/02/25 LMP (Certain) 23w 0d Notes Visit Date: 12/04/24 Last Updated by: Anjana Foster CNM 24 yo . sono 08/22/24: IUP 10w5. EDC: 03/15/25 JENNIE: GC/CT-. +BV. tx with flagyl Visit Date: 09/15/24 Last Updated by: Anjana Foster CNM 09/08/24: +CT/GC-, A+,abs-, rpr;;nr, rub imm, hbsag-, hiv-, HC-, , NIPT-/boy, carrier screen- Office Procedures OB Clinic LOC & Office Proc's Nursing/Assessment Patient Status: Established Patient OB Clinic Nursing Assessment: Medication Reconciliation, Update PMH in EMR and Vital Signs OB Clinic Coordination of Care: Complex Care and Chronic Disease 1-5, Consent,records obtained, informed consent, Education Simp Pt/Fam and 4+ Authorizations needed Special Needs: Heart tones Established Patient Charge Established Patient Point Assignment: 130 Established Patient Point Charge: EP Level 4 (120-155) Assessment & Plan Diagnosis / Problem List (1) Chronic candidiasis of vulva and vagina: Status: Acute (2) Encounter for supervision of high risk in second trimester, antepartum: Status: Acute Plan Patient has been scheduled for follow-up maternal- medicine referral in 8 weeks. Third trimester labs with cystic fibrosis and spinal muscular atrophy scan. Zofran 4 mg every 68 hours. Discussed comfort measures for backache and pelvic pressure. Tylenol as needed. Return in 4 weeks OB check Additional Plan Follow Up: 4 Weeks (obc)
[2024-12-04 11:19] VITALS: BP 120/75; PULSE 94; RESP 17; TEMP 36.6; O2SAT 98; BMI 33.0
== END 2024-12-04 12:04 | disposition home or self-care (01) ==
LOC: HODSOBC 11:07
PROVIDERS: PCP Advanced Practice Midwife; Referring Provider Advanced Practice Midwife; Supervising Provider Advanced Practice Midwife; Visit Provider Advanced Practice Midwife
DX: O09.892 Supervision of other high risk pregnancies, second trimester (principal); O98.812 Other maternal infectious and parasitic diseases complicating pregnancy, second trimester; B37.32 Chronic candidiasis of vulva and vagina; Z3A.25 25 weeks gestation of pregnancy
CPT/HCPCS: 99214; G0463

== ENCOUNTER 2025-01-01 12:58 | Outpatient (AMB) | payer MEDICAID, SELFPAY ==
[2025-01-01 13:13] VITALS: BP 123/72; PULSE 101; RESP 16; TEMP 36.2; O2SAT 98; BMI 33.7
--- NOTE | 2025-01-01 13:13 | OBCLNT_ITS ---
Vital Signs 01/01/25 13:13 Height 1.68 m Height Method Stated Weight 95.424 kg Weight Measurement Method Standing Scale BMI 33.7 BP 123/72 Blood Pressure Source Automatic Cuff Blood Pressure Location Left Upper Arm Position Sitting Respiration 16 Pulse 101 H Pulse Source Monitor Temp 97.2 F Temp Source Oral Pulse Oximetry (%) 98 Oxygen Delivery Method Room Air Allergies/Home Meds Allergies & Medications Allergies No Known Allergies Allergy (Verified 01/01/25 13:17) Medication Reconciliation vitamin-ferrous fumarate 28 mg iron-folic acid 800 mcg tablet ( Vitamins with Minerals) 1 tab PO QDAY 60 days #60 tabs 10/02/24 [Rx Confirmed 01/01/25] PNV 153-FA 400 mcg-om3 35 mg-dha 25 mg-epa 5 mg-fish oil chew tablet ( Gummies) 1 tab PO QDAY 90 days #90 tabs 12/04/24 [Rx Confirmed 01/01/25] ondansetron 4 mg disintegrating tablet 4 mg PO Q6H PRN nausea and vomiting #30 tabs 12/04/24 [Rx Confirmed 01/01/25] Intake Visit Data Collection New Patient or Established: Established Patient (seen at [facility] within 3 years) Reason for Visit:: OBC Seen by Clinical Staff ONLY (RN/MA): No Wheat Grower Required: No Do You Feel Safe at Home: Yes Authorities Contacted: N/A PCP or OBGYN visit in last 3 months: Yes Date of Last PCP or OBGYN visit: 12/04/24 Hx Now: Yes Are you currently on any form of Control: No Pain Present Currently: No Pain Scale Used: Martinez-Whatley/Numerical Pain scale:: 0 Smoking Status Smoking Status: Never smoker Questionnaires Covid-19 Vaccine Questionnaire Has patient been vacinated for Covid-19 Have you been vacinated for Covid-19: No PHQ-9 PHQ-2 Over the last 2 weeks, how often have you been bothered by any of the following problems? 1. Little interest or pleasure in doing things: not at all 2. Feeling down, depressed, or hopeless: not at all Total score: 0 PHQ-9 3. Trouble falling or staying asleep, or sleeping too much: Not at all 4. Feeling tired or having little energy: Not at all 5. Poor appetite or overeating: Not at all 6. Feeling bad about yourself - or that you are a failure or have let yourself or your family down: Not at all 7. Trouble concentrating on things, such as reading the newspaper or watching television: Not at all 8. Moving or speaking so slowly that other people could have noticed? - Or the opposite - being so fidgety or restless that you have been moving around a lot more than usual: not at all 9. Thoughts that you would be better off or of hurting yourself in some way: Not at all Total score: 0 If you checked off any problems, how difficult have these problems made it for you to do your work, take care of things at home, or get along with other people?: not difficult at all Source: Developed by Drs. Tree Guidry, Annie Deleon, Hamlet Luna and colleagues, with an educational tasneem from [employer]. Depression screen completed yes Social History Living Situation History Lives With: Family Housing: House Tobacco History Smoking Status: Never smoker Second Hand Smoke Exposure: No Alcohol History Alcohol Intake: Never Domestic Abuse History Do You Feel Safe at Home: Yes Care OB Visit Log OB Flowsheet Initial Weight: Not Recorded Date -?-?-?-?-?--?-?-?-?-?-?-?- EGA Weight BP Alb Glu CTX Pres Fundal ht FHR Mov Dilation Station Effacement Hx Notes Visit Note 09/02/24 -?-?-?-?-?-?-?-?-?-?-?-?- 12w 2d 84.141 kg 121/77 121/77 absent 12 145 absent 24 yo for OBI, no bleeding or sab complaints. No PMH,no Social habit,no surgery. sono 08/22: fibroid 3.7 uterus mass. schedule Mfm sono, ob panel, NIPT,carrier screen today 24 yo for OBI, no bleed ing or sab complaints. No PMH,no Social habit,no surgery. sono 08/22: fibroid 3.7 uterus mass. schedule Mfm sono, ob panel, NIPT,carrier screen today, start iron bid, diclegesis for nausea bid 09/15/24 -?-?-?-?-?-?-?-?-?-?-?-?- 14w 1d 85.445 kg 123/70 absent 14 135 ab sent patient here with partner for + CT. discussed + CT with patient. I also discussed other labs and NIPT. Zithromax 1 gm to patient and partner. no sex x 1 week. condom x 2 week. discuss safe sex practices. RTC 4 week for JENNIE, preg verification given. mfm appointment pending, RTC 4 week. wrong dates, discussed dates 10/02/24 -?-?-?-?-?-?-?-?-?-?-?-?- 16w 4d 85.899 kg 114/75 absent unknown 16 146 absent + fm, denies LOF,bleeding or cramps. taking PNV JENNIE for chlamydia NV, refill PNV, AFP today . anatomy scan 11/07/24. rtc 4 week, sab precaution 11/06/24 -?-?-?-?-?-?-?-?-?-?-?-?- 21w 4d 89.981 kg 126/76 absent unknown 20 145 absent + fm, no c/o leaking,no bleeding. OCC uc, fetus active Nuswab for GC/CT JENNIE, [facility] appointment 11/07. discuss ptl precaution, increase fluid, discuss diet and weight. rtc 4 week obc 12/04/24 -?-?-?-?-?-?-?-?-?-?-?-?- 25w 4d 93.157 kg 120/75 absent unknown 25 145 absent Complains of increased nausea and vomiting. Patient reports the Diclegis was not helping so she asked mother for some Zofran and that seemed to help. Patient would like to start on Zofran. She complains of second trimester discomforts like a backache and ligament pain. Sometimes low pelvic pain. Patient had questions about pre gnancy disability plaque. Denies leaking or bleeding. Reports movement. Patient has a follow-up for maternal- medicine sono in 6 to 8 weeks. Third trimester labs today along with cystic fibrosis and spinal muscular atrophy screen. Discussed comfort measures for second trimester discomforts like yoga and Tylenol and massage for the back pain. Increase fluids. I started patient on Zofran 4 mg every 6 to 8 hours. Discussed diet and weight gain and return in 4 weeks OB check 01/01/25 -?-?-?-?-?-?-?-?-?-?-?-?- 29w 4d 95.424 kg 123/72 absent unknown 29 145 active Reports good movement. Patient is here today for unscheduled visit because of third trimester discomforts. Patient is scheduled for genetic counseling and MFM appointment is pending. Reviewed concerns and comfort measures with patient. Keep next appointment. Discussed diet and weight. Discussed labor. Kick count twice a day. I discussed comfort measures for dizziness. Increase protein and increase fluids. Keep next appointment KARTHIKEYAN Calculator Estimated Delivery Date Method Current WG Current Estimate 03/15/25 Ultrasound #1 29w 4d Other Estimates 04/02/25 LMP (Certain) 27w 0d Notes Visit Date: 01/01/25 Last Updated by: Anjana Foster CNM JENNIE GC/CT-, Nuswab plus-, A+,abs-, rpr;;nr, RUB IMM< hbsag-,hiv-,HC-, 1 hr gtt: 144, 3 hr gtt: normal/1 value high, NIPT-, SMA+/CF- Visit Date: 12/04/24 Last Updated by: Anjana Foster CNM 24 yo . sono 08/22/24: IUP 10w5. EDC: 03/15/25 JENNIE: GC/CT-. +BV. tx with flagyl Visit Date: 09/15/24 Last Updated by: Anjana Foster CNM 09/08/24: +CT/GC-, A+,abs-, rpr;;nr, rub imm, hbsag-, hiv-, HC-, , NIPT-/boy, carrier screen- Office Procedures OB Clinic LOC & Office Proc's Nursing/Assessment Patient Status: Established Patient OB Clinic Nursing Assessment: Medication Reconciliation, Update PMH in EMR and Vital Signs OB Clinic Coordination of Care: Consent,records obtained, informed consent, Education Simp Pt/Fam, Lab and Imaging orders and Staff clarify orders Special Needs: Heart tones Established Patient Charge Established Patient Point Assignment: 105 Established Patient Point Charge: EP Level 3 (80-115) Assessment & Plan Diagnosis / Problem List (1) Encounter for supervision of high risk in second trimester, antepartum: Status: Acute Plan Reassurance given to patient. Reviewed comfort measures for throat, trimester complaints. Increase fluids. Increase protein. Discussed labor precautions. Keep next scheduled appointment and appointment with MFM and genetics Additional Plan Follow Up: 2 Weeks (obc)
== END 2025-01-01 13:49 | disposition home or self-care (01) ==
LOC: HODSOBC 12:58
PROVIDERS: Supervising Provider Advanced Practice Midwife; Visit Provider Advanced Practice Midwife
DX: O09.93 Supervision of high risk pregnancy, unspecified, third trimester (principal); Z3A.29 29 weeks gestation of pregnancy
CPT/HCPCS: 99213; G0463

== ENCOUNTER 2025-01-05 13:10 | Outpatient (AMB) | payer MEDICAID, SELFPAY ==
[2025-01-05 13:37] VITALS: BP 108/66; PULSE 79; RESP 16; TEMP 36.4; O2SAT 98; BMI 34.1
--- NOTE | 2025-01-05 13:37 | AMB.OBVISIT ---
Vital Signs 01/05/25 13:37 Height 1.68 m Height Method Stated Weight 96.332 kg Weight Measurement Method Standing Scale BMI 34.1 BP 108/66 Blood Pressure Source Automatic Cuff Blood Pressure Location Left Upper Arm Position Sitting Respiration 16 Pulse 79 Pulse Source Monitor Temp 97.5 F Temp Source Oral Pulse Oximetry (%) 98 Oxygen Delivery Method Room Air Allergies/Home Meds Allergies & Medications Allergies No Known Allergies Allergy (Verified 01/05/25 13:38) Medication Reconciliation vitamin-ferrous fumarate 28 mg iron-folic acid 800 mcg tablet ( Vitamins with Minerals) 1 tab PO QDAY 60 days #60 tabs 10/02/24 [Rx Confirmed 01/05/25] PNV 153-FA 400 mcg-om3 35 mg-dha 25 mg-epa 5 mg-fish oil chew tablet ( Gummies) 1 tab PO QDAY 90 days #90 tabs 12/04/24 [Rx Confirmed 01/05/25] ondansetron 4 mg disintegrating tablet 4 mg PO Q6H PRN nausea and vomiting #30 tabs 12/04/24 [Rx Confirmed 01/05/25] aspirin 81 mg tablet,delayed release (Adult Aspirin Regimen) 81 mg PO QDAY #60 tabs 01/05/25 [Rx] Intake Visit Data Collection New Patient or Established: Established Patient (seen at [facility] within 3 years) Reason for Visit:: CARE Seen by Clinical Staff ONLY (RN/MA): No Merchandising Professor Required: No Do You Feel Safe at Home: Yes Authorities Contacted: N/A PCP or OBGYN visit in last 3 months: Yes Hx Now: Yes Are you currently on any form of Control: No Pain Present Currently: No Pain Scale Used: Martinez-Whatley/Numerical Pain scale:: 0 Smoking Status Smoking Status: Never smoker Questionnaires Covid-19 Vaccine Questionnaire Has patient been vacinated for Covid-19 Have you been vacinated for Covid-19: Yes PHQ-9 PHQ-2 Over the last 2 weeks, how often have you been bothered by any of the following problems? 1. Little interest or pleasure in doing things: not at all 2. Feeling down, depressed, or hopeless: not at all Total score: 0 PHQ-9 3. Trouble falling or staying asleep, or sleeping too much: Not at all 4. Feeling tired or having little energy: Not at all 5. Poor appetite or overeating: Not at all 6. Feeling bad about yourself - or that you are a failure or have let yourself or your family down: Not at all 7. Trouble concentrating on things, such as reading the newspaper or watching television: Not at all 8. Moving or speaking so slowly that other people could have noticed? - Or the opposite - being so fidgety or restless that you have been moving around a lot more than usual: not at all 9. Thoughts that you would be better off or of hurting yourself in some way: Not at all Total score: 0 Source: Developed by Drs. Tree Guidry, Annie Deleon, Hamlet Luna and colleagues, with an educational tasneem from [employer]. Depression screen completed yes Social History Living Situation History Lives With: Family Housing: House Tobacco History Smoking Status: Never smoker Second Hand Smoke Exposure: No Alcohol History Alcohol Intake: Never Domestic Abuse History Do You Feel Safe at Home: Yes Care OB Visit Log OB Flowsheet Initial Weight: Not Recorded Date <del>?</del> EGA Weight BP Alb Glu CTX Pres Fundal ht FHR Mov Dilation Station Effacement Hx Notes Visit Note 09/02/24 <del>?</del> 12w 2d 84.141 kg 121/77 121/77 absent 12 145 absent 24 yo for OBI, no bleeding or sab complaints. No PMH,no Social habit,no surgery. sono 08/22: fibroid 3.7 uterus mass. schedule Mfm sono, ob panel, NIPT,carrier screen today 24 yo for OBI, no bleeding or sab complaints. No PMH,no Social habit,no surgery. sono 08/22: fibroid 3.7 uterus mass. schedule Mfm sono, ob panel, NIPT,carrier screen today, start iron bid, diclegesis for nausea bid 09/15/24 <del>?</del> 14w 1d 85.445 kg 123/70 absent 14 135 absent patient here with partner for + CT. discussed + CT with patient. I also discussed other labs and NIPT. Zithromax 1 gm to patient and partner. no sex x 1 week. condom x 2 week. discuss safe sex practices. RTC 4 week for JENNIE, preg verification given. mfm appointment pending, RTC 4 week. wrong dates, discussed dates 10/02/24 <del>?</del> 16w 4d 85.899 kg 114/75 absent unknown 16 146 absent + fm, denies LOF,bleeding or cramps. taking PNV JENNIE for chlamydia NV, refill PNV, AFP today . anatomy scan 11/07/24. rtc 4 week, sab precaution 11/06/24 <del>?</del> 21w 4d 89.981 kg 126/76 absent unknown 20 145 absent + fm, no c/o leaking,no bleeding. OCC uc, fetus active Nuswab for GC/CT JENNIE, mfm appointment 11/07. discuss ptl precaution, increase fluid, discuss diet and weight. rtc 4 week obc 12/04/24 <del>?</del> 25w 4d 93.157 kg 120/75 absent unknown 25 145 absent Complains of increased nausea and vomiting. Patient reports the Diclegis was not helping so she asked mother for some Zofran and that seemed to help. Patient would like to start on Zofran. She complains of second trimester discomforts like a backache and ligament pain. Sometimes low pelvic pain. Patient had questions about disability plaque. Denies leaking or bleeding. Reports movement. Patient has a follow-up for maternal- medicine sono in 6 to 8 weeks. Third trimester labs today along with cystic fibrosis and spinal muscular atrophy screen. Discussed comfort measures for second trimester discomforts like yoga and Tylenol and massage for the back pain. Increase fluids. I started patient on Zofran 4 mg every 6 to 8 hours. Discussed diet and weight gain and return in 4 weeks OB check 01/01/25 <del>?</del> 29w 4d 95.424 kg 123/72 absent unknown 29 145 active Reports good movement. Patient is here today for unscheduled visit because of third trimester discomforts. Patient is scheduled for genetic counseling and [facility] appointment is pending. Reviewed concerns and comfort measures with patient. Keep next appointment. Discussed diet and weight. Discussed labor. Kick count twice a day. I discussed comfort measures for dizziness. Increase protein and increase fluids. Keep next appointment 01/05/25 <del>?</del> 30w 1d 96.332 kg 108/66 absent cephalic 30 140 active Reports good movement. No complaints of labor. Denies leaking, bleeding, contractions. Low-dose baby aspirin. Discussed labor precautions. Keep appointment with follow-up to [facility]. Discussed diet and weight gain. Patient declined Tdap today and return in 2 weeks OB check KARTHIKEYAN Calculator Estimated Delivery Date Method Current WG Current Estimate 03/15/25 Ultrasound #1 30w 1d Other Estimates 04/02/25 LMP (Certain) 27w 4d 03/15/25 Ultrasound #2 30w 1d 03/15/25 Manual 30w 1d final KARTHIKEYAN: 03/15/25 Notes Visit Date: 01/01/25 Last Updated by: Anjana Foster CNM JENNIE GC/CT-, Nuswab plus-, A+,abs-, rpr;;nr, RUB IMM< hbsag-,hiv-,HC-, 1 hr gtt: 144, 3 hr gtt: normal/1 value high, NIPT-, SMA+/CF- Visit Date: 12/04/24 Last Updated by: Anjana Foster CNM 24 yo . sono 08/22/24: IUP 10w5. EDC: 03/15/25 JENNIE: GC/CT-. +BV. tx with flagyl Visit Date: 09/15/24 Last Updated by: Anjana Foster CNM 09/08/24: +CT/GC-, A+,abs-, rpr;;nr, rub imm, hbsag-, hiv-, HC-, , NIPT-/boy, carrier screen- Office Procedures OB Clinic LOC & Office Proc's Nursing/Assessment Patient Status: Established Patient OB Clinic Nursing Assessment: Medication Reconciliation, Update PMH in EMR and Vital Signs OB Clinic Coordination of Care: Complex Care and Chronic Disease 1-5, Consent,records obtained, informed consent, Education Simp Pt/Fam, 1 Ins Authorization, Lab and Imaging orders, Results/Orders obtained and Staff clarify orders Special Needs: Heart tones Established Patient Charge Established Patient Point Assignment: 150 Established Patient Point Charge: EP Level 4 (120-155) Assessment & Plan Diagnosis / Problem List (1) Encounter for care in third trimester of first : Status: Acute Plan Start low-dose baby aspirin. Discussed labor precautions. Patient declined Tdap. Reviewed diet and weight gain. Return in 3 weeks OB check Additional Plan Follow Up: 3 Weeks (obc)
== END 2025-01-05 14:26 | disposition home or self-care (01) ==
LOC: HODSOBC 13:10
PROVIDERS: Supervising Provider Advanced Practice Midwife; Visit Provider Advanced Practice Midwife
DX: Z34.03 Encounter for supervision of normal first pregnancy, third trimester (principal); Z3A.30 30 weeks gestation of pregnancy; Z28.21 Immunization not carried out because of patient refusal
CPT/HCPCS: 99214; G0463

== ENCOUNTER 2025-01-20 14:57 | Outpatient (AMB) | payer MEDICAID, SELFPAY ==
[2025-01-20 15:23] VITALS: BP 114/66; PULSE 89; RESP 17; TEMP 36.7; O2SAT 97; BMI 34.6
--- NOTE | 2025-01-20 15:23 | OBCLNT_ITS ---
Vital Signs 01/20/25 15:23 Height 1.68 m Height Method Stated Weight 97.692 kg Weight Measurement Method Standing Scale BMI 34.6 BP 114/66 Blood Pressure Source Automatic Cuff Blood Pressure Location Right Upper Arm Position Sitting Respiration 17 Pulse 89 Pulse Source Monitor Temp 98.0 F Temp Source Temporal Artery Scan Pulse Oximetry (%) 97 Oxygen Delivery Method Room Air Allergies/Home Meds Allergies & Medications Allergies No Known Allergies Allergy (Verified 01/05/25 13:38) Intake Visit Data Collection New Patient or Established: Established Patient (seen at [facility] within 3 years) Reason for Visit:: OBC FOLLOW UP Do You Feel Safe at Home: Yes Authorities Contacted: N/A PCP or OBGYN visit in last 3 months: Yes Date of Last PCP or OBGYN visit: 01/05/25 Hx Now: Yes Are you currently on any form of Control: No Pain Present Currently: No Smoking Status Smoking Status: Never smoker Questionnaires PHQ-9 PHQ-2 Over the last 2 weeks, how often have you been bothered by any of the following problems? 1. Little interest or pleasure in doing things: not at all PHQ-9 8. Moving or speaking so slowly that other people could have noticed? - Or the opposite - being so fidgety or restless that you have been moving around a lot more than usual: not at all Source: Developed by Drs. Tree Guidry, Annie Deleon, Hamlet Luna and colleagues, with an educational tasneem from [employer]. Social History Living Situation History Lives With: Family Housing: House Tobacco History Smoking Status: Never smoker Second Hand Smoke Exposure: No Alcohol History Alcohol Intake: Never Domestic Abuse History Do You Feel Safe at Home: Yes Care OB Visit Log OB Flowsheet Initial Weight: Not Recorded Date -?-?-?-?-?-?-?-?-?-?-?-?- EGA Weight BP Alb Glu CTX Pres Fundal ht FHR Mov Dilation Station Effacement Hx Notes Visit Note 09/02/24 -?-?-?-?-?-?-?-?-?-?-?-?- 12w 2d 84.141 kg 121/77 121/77 absent 12 145 absent 24 yo for OBI, no bleeding or sab complaints. No PMH,no Social habit,no surgery. sono 08/22: fibroid 3.7 uterus mass. schedule Mfm sono, ob panel, NIPT,carrier screen today 24 yo for OBI, no bleed ing or sab complaints. No PMH,no Social habit,no mau camryn. sono 08/22: fibroid 3.7 uterus mass. schedule Mfm sono, ob panel, NIPT,carrier screen today, start iron bid, diclegesis for nausea bid 09/15/24 -?-?-?-?-?-?-?-?-?-?-?-?- 14w 1d 85.445 kg 123/70 absent 14 135 ab sent patient here with partner for + CT. discussed + CT with patient. I also discussed other labs and NIPT. Zithromax 1 gm to patient and partner. no sex x 1 week. condom x 2 week. discuss safe sex practices. RTC 4 week for JENNIE, preg verification given. mfm appointment pending, RTC 4 week. wrong dates, discussed dates 10/02/24 -?-?-?-?-?-?-?-?-?-?-?-?- 16w 4d 85.899 kg 114/75 absent unknown 16 146 absent + fm, denies LOF,bleeding or cramps. taking PNV JENNIE for chlamydia NV, refill PNV, AFP today . anatomy scan 11/07/24. rtc 4 week, sab precaution 11/06/24 -?-?-?-?-?-?-?-?-?-?-?-?- 21w 4d 89.981 kg 126/76 absent unknown 20 145 absent + fm, no c/o leaking,no bleeding. OCC uc, fetus active Nuswab for GC/CT JENNIE, mfm appointment 11/07. discuss ptl precaution, increase fluid, discuss diet and weight. rtc 4 week obc 12/04/24 -?-?-?-?-?-?-?-?-?-?-?-?- 25w 4d 93.157 kg 120/75 absent unknown 25 145 absent Complains of increased nausea and vomiting. Patient reports the Diclegis was not helping so she asked mother for some Zofran and that seemed to help. Patient would like to start on Zofran. She complains of second trimester discomforts like a backache and ligament pain. Sometimes low pelvic pain. Patient had questions about disability plaque. Denies leaking or bleeding. Reports movement. Patient has a follow-up for maternal- medicine sono in 6 to 8 weeks. Third trimester labs today along with cystic fibrosis and spinal muscular atrophy screen. Discussed comfort measures for second trimester discomforts like yoga and Tylenol and massage for the back pain. Increase fluids. I started patient on Zofran 4 mg every 6 to 8 hours. Discussed diet and weight gain and return in 4 weeks OB check 01/01/25 -?-?-?-?-?-?-?-?-?-?-?-?- 29w 4d 95.424 kg 123/72 absent unknown 29 145 active Reports good movement. Patient is here today for unscheduled visit because of third trimester discomforts. Patient is scheduled for genetic counseling and MFM appointment is pending. Reviewed concerns and comfort measures with patient. Keep next appointment. Discussed diet and weight. Discussed labor. Kick count twice a day. I discussed comfort measures for dizziness. Increase protein and increase fluids. Keep next appointment 01/05/25 -?-?-?-?-?-?-?-?-?-?-?-?- 30w 1d 96.332 kg 108/66 absent cephalic 30 140 active Reports good movement. No complaints of labor. Denies leaking, bleeding, contractions. Low-dose baby as pirin. Discussed labor precautions. Keep appointment with follow-up to MFM. Discussed diet and weight gain. Patient declined Tdap today and return in 2 weeks OB check 01/20/25 -?-?-?-?-?-?-?-?-?-?-?-?- 32w 2d 97.692 kg 114/66 absent cephalic 32 140 active f/u mfm 02/20, c/o spots on lower leg that itch at night. noted several small, round,pink, lesion, good boarders. Fetus active. Reports good movement. Denies leaking, bleeding, contractions Cholestas is labs. Nystatin 100,[address] on lesions twice a day. Discussed handwashing and prevention of spreading. Discussed labor precautions. Kick count twice a day. And keep MFM a ppointment in January. Return in 2 weeks OB check KARTHIKEYAN Calculator Estimated Delivery Date Method Current WG Current Estimate 03/15/25 Ultrasound #1 32w 2d Other Estimates 04/02/25 LMP (Certain) 29w 5d 03/15/25 Ultrasound #2 32w 2d 03/15/25 Manual 32w 2d final KARTHIKEYAN: 02/28 10/22 Notes Visit Date: 01/01/25 Last Updated by: Anjana Foster CNM JENNIE GC/CT-, Nuswab plus-, A+,abs-, rpr;;nr, RUB IMM< hbsag-,hiv-,HC-, 1 hr gtt: 144, 3 hr gtt: normal/1 value high, NIPT-, SMA+/CF- Visit Date: 12/04/24 Last Updated by: Anjana Foster CNM 24 yo . sono 08/22/24: IUP 10w5. EDC: 03/15/25 JENNIE: GC/CT-. +BV. tx with flagyl Visit Date: 09/15/24 Last Updated by: Anjana Foster CNM 09/08/24: +CT/GC-, A+,abs-, rpr;;nr, rub imm, hbsag-, hiv-, HC-, , NIPT-/boy, carrier screen- Office Procedures OBC Clinic LOC & Office Proc's Nursing/Assessment Patient Status: Established Patient OB Clinic Nursing Assessment: Medication Reconciliation, Update PMH in EMR and Vital Signs OB Clinic Coordination of Care: Complex Care and Chronic Disease 1-5, Education Complex Pt/Fam, Consent,records obtained, informed consent and Lab and Imaging orders Special Needs: Heart tones Established Patient Charge Established Patient Point Assignment: 125 Established Patient Point Charge: EP Level 4 (120-155) Assessment & Plan Diagnosis / Problem List (1) Encounter for care in third trimester of first : Status: Acute Plan Nystatin 100,000 units to lesions on leg twice a day. Discussed handwashing and good hygiene. Keep appointment with [facility] February 20. Cholestasis labs. Discussed labor precautions and kick count twice a day. Return in 2 weeks OB check Additional Plan Follow Up: 2 Weeks (obc)
== END 2025-01-20 15:55 | disposition home or self-care (01) ==
LOC: HODSOBC 14:57
PROVIDERS: Supervising Provider Advanced Practice Midwife; Visit Provider Advanced Practice Midwife
DX: O09.893 Supervision of other high risk pregnancies, third trimester (principal); O99.713 Diseases of the skin and subcutaneous tissue complicating pregnancy, third trimester; L98.9 Disorder of the skin and subcutaneous tissue, unspecified; Z3A.32 32 weeks gestation of pregnancy
CPT/HCPCS: 99214; G0463

== ENCOUNTER 2025-02-03 15:04 | Outpatient (AMB) | payer MEDICAID, SELFPAY ==
[2025-02-03 15:13] VITALS: BP 117/74; PULSE 93; RESP 18; TEMP 35.9; O2SAT 96; BMI 35.6
--- NOTE | 2025-02-03 15:13 | OBCLNT_ITS ---
Vital Signs 02/03/25 15:13 Height 1.68 m Height Method Stated Weight 100.471 kg Weight Measurement Method Standing Scale BMI 35.6 BP 117/74 Blood Pressure Source Automatic Cuff Blood Pressure Location Left Upper Arm Position Sitting Respiration 18 Pulse 93 Pulse Source Monitor Temp 96.6 F L Temp Source Oral Pulse Oximetry (%) 96 Oxygen Delivery Method Room Air Allergies/Home Meds Allergies & Medications Allergies No Known Allergies Allergy (Verified 02/03/25 15:15) Medication Reconciliation vitamin-ferrous fumarate 28 mg iron-folic acid 800 mcg tablet ( Vitamins with Minerals) 1 tab PO QDAY 60 days #60 tabs 10/02/24 [Rx Confirmed 02/03/25] PNV 153-FA 400 mcg-om3 35 mg-dha 25 mg-epa 5 mg-fish oil chew tablet ( Gummies) 1 tab PO QDAY 90 days #90 tabs 12/04/24 [Rx Confirmed 02/03/25] ondansetron 4 mg disintegrating tablet 4 mg PO Q6H PRN nausea and vomiting #30 tabs 12/04/24 [Rx Confirmed 02/03/25] aspirin 81 mg tablet,delayed release (Adult Aspirin Regimen) 81 mg PO QDAY #60 tabs 01/05/25 [Rx Confirmed 02/03/25] nystatin 100,000 unit/gram topical cream 1 applic topical BID #1 tube 01/20/25 [Rx Confirmed 02/03/25] Intake Visit Data Collection New Patient or Established: Established Patient (seen at [facility] within 3 years) Reason for Visit:: CARE Seen by Clinical Staff ONLY (RN/MA): No Settlement Worker Required: No Do You Feel Safe at Home: Yes Authorities Contacted: N/A PCP or OBGYN visit in last 3 months: Yes Hx Now: Yes Are you currently on any form of Control: No Pain Present Currently: No Pain Scale Used: Martinez-Whatley/Numerical Pain scale:: 0 Smoking Status Smoking Status: Never smoker Questionnaires Covid-19 Vaccine Questionnaire Has patient been vacinated for Covid-19 Have you been vacinated for Covid-19: Yes PHQ-9 PHQ-2 Over the last 2 weeks, how often have you been bothered by any of the following problems? 1. Little interest or pleasure in doing things: not at all 2. Feeling down, depressed, or hopeless: not at all Total score: 0 PHQ-9 3. Trouble falling or staying asleep, or sleeping too much: Not at all 4. Feeling tired or having little energy: Not at all 5. Poor appetite or overeating: Not at all 6. Feeling bad about yourself - or that you are a failure or have let yourself or your family down: Not at all 7. Trouble concentrating on things, such as reading the newspaper or watching television: Not at all 8. Moving or speaking so slowly that other people could have noticed? - Or the opposite - being so fidgety or restless that you have been moving around a lot more than usual: not at all 9. Thoughts that you would be better off or of hurting yourself in some way: Not at all Total score: 0 Source: Developed by Drs. Tree Guidry, Annie Deleon, Hamlet Luna and colleagues, with an educational tasneem from [employer]. Depression screen completed yes Social History Living Situation History Lives With: Family Housing: House Tobacco History Smoking Status: Never smoker Second Hand Smoke Exposure: No Alcohol History Alcohol Intake: Never Domestic Abuse History Do You Feel Safe at Home: Yes Care OB Visit Log OB Flowsheet Initial Weight: Not Recorded Date -?-?-?-?-?-?-?-?-?-?-?-?- EGA Weight BP Alb Glu CTX Pres Fundal ht FHR Mov Dilation Station Effacement Hx Notes Visit Note 09/02/24 -?-?-?-?-?-?-?-?-?-?-?-?- 12w 2d 84.141 kg 121/77 121/77 absent 12 145 absent 24 yo for OBI, no bleeding or sab complaints. No PMH,no Social habit,no surgery. sono 08/22: fibroid 3.7 uterus mass. schedule Mfm sono, ob panel, NIPT,carrier screen today 24 yo for OBI, no bleed ing or sab complaints. No PMH,no Social habit,no surgery. sono 08/22: fibroid 3.7 uterus mass. schedule Mfm sono, ob panel, NIPT,carrier screen today, start iron bid, diclegesis for nausea bid 09/15/24 -?-?-?-?-?-?-?-?-?-?-?-?- 14w 1d 85.445 kg 123/70 absent 14 135 ab sent patient here with partner for + CT. discussed + CT with patient. I also discussed other labs and NIPT. Zithromax 1 gm to patient and partner. no sex x 1 week. condom x 2 week. discuss safe sex practices. RTC 4 week for JENNIE, preg verification given. mfm appointment pending, RTC 4 week. wrong dates, discussed dates 10/02/24 -?-?-?-?-?-?-?-?-?-?-?-?- 16w 4d 85.899 kg 114/75 absent unknown 16 146 absent + fm, denies LOF,bleeding or cramps. taking PNV JENNIE for chlamydia NV, refill PNV, AFP today . anatomy scan 11/07/24. rtc 4 week, sab precaution 11/06/24 -?-?-?-?-?-?-?-?-?-?-?-?- 21w 4d 89.981 kg 126/76 absent unknown 20 145 absent + fm, no c/o leaking,no bleeding. OCC uc, fetus active Nuswab for GC/CT JENNIE, [facility] appointment 11/07. discuss ptl precaution, increase fluid, discuss diet and weight. rtc 4 week obc 12/04/24 -?-?-?-?-?-?-?-?-?-?-?-?- 25w 4d 93.157 kg 120/75 absent unknown 25 145 absent Complains of increased nausea and vomiting. Patient reports the Diclegis was not helping so she asked mother for some Zofran and that seemed to help. Patient would like to start on Zofran. She complains of second trimester discomforts like a backache and ligament pain. Sometimes low pelvic pain. Patient had questions about disability plaque. Denies leaking or bleeding. Reports movement. Patient has a follow-up for maternal- medicine sono in 6 to 8 weeks. Third trimester labs today along with cystic fibrosis and spinal muscular atrophy screen. Discussed comfort measures for second trimester discomforts like yoga and Tylenol and massage for the back pain. Increase fluids. I started patient on Zofran 4 mg every 6 to 8 hours. Discussed diet and weight gain and return in 4 weeks OB check 01/01/25 -?-?-?-?-?-?-?-?-?-?-?-?- 29w 4d 95.424 kg 123/72 absent unknown 29 145 active Reports good movement. Patient is here today for unscheduled visit because of third trimester discomforts. Patient is scheduled for genetic counseling and MFM appointment is pending. Reviewed concerns and comfort measures with patient. Keep next appointment. Discussed diet and weight. Discussed labor. Kick count twice a day. I discussed comfort measures for dizziness. Increase protein and increase fluids. Keep next appointment 01/05/25 -?-?-?-?-?-?-?-?-?-?-?-?- 30w 1d 96.332 kg 108/66 absent cephalic 30 140 active Reports good movement. No complaints of labor. Denies leaking, bleeding, contractions. Low-dose baby as pirin. Discussed labor precautions. Keep appointment with follow-up to MFM. Discussed diet and weight gain. Patient declined Tdap today and return in 2 weeks OB check 01/20/25 -?-?-?-?-?-?-?-?-?-?-?-?- 32w 2d 97.692 kg 114/66 absent cephalic 32 140 active f/u mfm 02/20, c/o spots on lower leg that itch at night. noted several small, round,pink, lesion, good boarders. Fetus active. Reports good movement. Denies leaking, bleeding, contractions Cholestas is labs. Nystatin 100,[address] on lesions twice a day. Discussed handwashing and prevention of spreading. Discussed labor precautions. Kick count twice a day. And keep MFM appointment in January. Return in 2 weeks OB check 02/03/25 -?-?-?-?-?-?-?-?-?-?-?-?- 34w 2d 100.471 kg 117/74 absent cephalic 34 14 0 active patient was seen at [facility] for possible SROM. amniosure-. given beta methasone and will get #2 tonight. Reports good movement. Denies leaking or bleeding. Complains of swelling in her feet. Denies headache or blurred vision No itching today. Reminded to get her second betamethasone at [facility]. Discussed labor precautions. Kick count. Group B strep next visit. Comfort measures for pedal swelling. Discussed labor precautions. Return in a week OB check and GBS KARTHIKEYAN Calculator Estimated Delivery Date Method Current WG Current Estimate 03/15/25 Ultrasound #1 34w 2d Other Estimates 04/02/25 LMP (Certain) 31w 5d 03/15/25 Ultrasound #2 34w 2d 03/15/25 Manual 34w 2d final KARTHIKEYAN: 02/28 10/22 Notes Visit Date: 01/01/25 Last Updated by: Anjana Foster CNM JENNIE GC/CT-, Nuswab plus-, A+,abs-, rpr;;nr, RUB IMM< hbsag-,hiv-,HC-, 1 hr gtt: 144, 3 hr gtt: normal/1 value high, NIPT-, SMA+/CF- Visit Date: 12/04/24 Last Updated by: Anjana Foster CNM 24 yo . sono 08/22/24: IUP 10w5. EDC: 03/15/25 JENNIE: GC/CT-. +BV. tx with flagyl Visit Date: 09/15/24 Last Updated by: Anjana Foster CNM 09/08/24: +CT/GC-, A+,abs-, rpr;;nr, rub imm, hbsag-, hiv-, HC-, , NIPT-/boy, carrier screen- Office Procedures OBC Clinic LOC & Office Proc's Nursing/Assessment Patient Status: Established Patient OB Clinic Nursing Assessment: Medication Reconciliation, Update PMH in EMR and Vital Signs OB Clinic Coordination of Care: Complex Care and Chronic Disease 1-5, Consent,records obtained, informed consent, Education Simp Pt/Fam, 1 Ins Authorization, Lab and Imaging orders, Results/Orders obtained and Staff clarify orders Special Needs: Heart tones Established Patient Charge Established Patient Point Assignment: 150 Established Patient Point Charge: EP Level 4 (120-155) Assessment & Plan Diagnosis / Problem List (1) Encounter for care in third trimester of first : Status: Acute Plan Discussed kick count twice a day. Discussed comfort measures for swollen feet. No salt. Increase fluids. Discussed third trimester labs and 3-hour GTT reviewed diet and weight. Return in a week OB check and GBS Additional Plan Follow Up: 1 Week (obc)
== END 2025-02-03 15:35 | disposition home or self-care (01) ==
LOC: HODSOBC 15:04
PROVIDERS: Supervising Provider Advanced Practice Midwife; Visit Provider Advanced Practice Midwife
DX: O09.893 Supervision of other high risk pregnancies, third trimester (principal); O99.891 Other specified diseases and conditions complicating pregnancy; R22.43 Localized swelling, mass and lump, lower limb, bilateral; Z3A.34 34 weeks gestation of pregnancy
CPT/HCPCS: 99214; G0463

== ENCOUNTER 2025-02-09 12:55 | Outpatient (AMB) | payer MEDICAID, SELFPAY ==
[2025-02-09 13:02] VITALS: BP 109/71; PULSE 70; RESP 17; TEMP 36.5; O2SAT 98; BMI 36.8
--- NOTE | 2025-02-09 13:02 | OBCLNT_ITS ---
Vital Signs 02/09/25 13:02 Height 1.68 m Height Method Stated Weight 103.873 kg Weight Measurement Method Standing Scale BMI 36.8 BP 109/71 Blood Pressure Source Automatic Cuff Blood Pressure Location Right Upper Arm Position Sitting Respiration 17 Pulse 70 Pulse Source Monitor Temp 97.7 F Temp Source Temporal Artery Scan Pulse Oximetry (%) 98 Oxygen Delivery Method Room Air Allergies/Home Meds Allergies & Medications Allergies No Known Allergies Allergy (Verified 02/09/25 13:04) Medication Reconciliation vitamin-ferrous fumarate 28 mg iron-folic acid 800 mcg tablet ( Vitamins with Minerals) 1 tab PO QDAY 60 days #60 tabs 10/02/24 [Rx Confirmed 02/09/25] aspirin 81 mg tablet,delayed release (Adult Aspirin Regimen) 81 mg PO QDAY #60 tabs 01/05/25 [Rx Confirmed 02/09/25] Intake Visit Data Collection New Patient or Established: Established Patient (seen at [facility] within 3 years) Reason for Visit:: OBC Seen by Clinical Staff ONLY (RN/MA): No Manager Online Required: No Do You Feel Safe at Home: Yes Authorities Contacted: N/A PCP or OBGYN visit in last 3 months: Yes Date of Last PCP or OBGYN visit: 02/03/25 Hx Now: Yes Are you currently on any form of Control: No Pain Present Currently: Yes Pain Location: Abdomen Pain Scale Used: Martinez-Whatley/Numerical Pain scale:: 6 Smoking Status Smoking Status: Never smoker Questionnaires Covid-19 Vaccine Questionnaire Has patient been vacinated for Covid-19 Have you been vacinated for Covid-19: No PHQ-9 PHQ-2 Over the last 2 weeks, how often have you been bothered by any of the following problems? 1. Little interest or pleasure in doing things: not at all 2. Feeling down, depressed, or hopeless: not at all Total score: 0 PHQ-9 3. Trouble falling or staying asleep, or sleeping too much: Not at all 4. Feeling tired or having little energy: Not at all 5. Poor appetite or overeating: Not at all 6. Feeling bad about yourself - or that you are a failure or have let yourself or your family down: Not at all 7. Trouble concentrating on things, such as reading the newspaper or watching television: Not at all 8. Moving or speaking so slowly that other people could have noticed? - Or the opposite - being so fidgety or restless that you have been moving around a lot more than usual: not at all 9. Thoughts that you would be better off or of hurting yourself in some way: Not at all Total score: 0 If you checked off any problems, how difficult have these problems made it for you to do your work, take care of things at home, or get along with other people?: not difficult at all Source: Developed by Drs. Tree [employer], Annie Deleon, Hamlet Luna and colleagues, with an educational tasneem from [employer]. Depression screen completed yes Social History Living Situation History Marital Status: Single Lives With: Family Housing: House Tobacco History Smoking Status: Never smoker Second Hand Smoke Exposure: No Alcohol History Alcohol Intake: Never Domestic Abuse History Do You Feel Safe at Home: Yes Care OB Visit Log OB Flowsheet Initial Weight: Not Recorded Date -?-?-?-?-?-?-?-?-?-?-?-?- EGA Weight BP Alb Glu CTX Pres Fundal ht FHR Mov Dilation Station Effacement Hx Notes Visit Note 09/02/24 -?-?-?-?-?-?-?-?-?-?-?-?- 12w 2d 84.141 kg 121/77 121/77 absent 12 145 absent 24 yo for OBI, no bleeding or sab complaints. No PMH,no Social habit,no surgery. sono 08/22: fibroid 3.7 uterus mass. schedule Mfm sono, ob panel, NIPT,carrier screen today 24 yo for OBI, no bleed ing or sab complaints. No PMH,no Social habit,no surgery. sono 08/22: fibroid 3.7 uterus mass. schedule Mfm sono, ob panel, NIPT,carrier screen today, start iron bid, diclegesis for nausea bid 09/15/24 -?-?-?-?-?-?-?-?-?-?-?-?- 14w 1d 85.445 kg 123/70 absent 14 135 ab sent patient here with partner for + CT. discussed + CT with patient. I also discussed other labs and NIPT. Zithromax 1 gm to patient and partner. no sex x 1 week. condom x 2 week. discuss safe sex practices. RTC 4 week for JENNIE, preg verification given. mfm appointment pending, RTC 4 week. wrong dates, discussed dates 10/02/24 -?-?-?-?-?-?-?-?-?-?-?-?- 16w 4d 85.899 kg 114/75 absent unknown 16 146 absent + fm, denies LOF,bleeding or cramps. taking PNV JENNIE for chlamydia NV, refill PNV, AFP today . anatomy scan 11/07/24. rtc 4 week, sab precaution 11/06/24 -?-?-?-?-?-?-?-?-?-?-?-?- 21w 4d 89.981 kg 126/76 absent unknown 20 145 absent + fm, no c/o leaking,no bleeding. OCC uc, fetus active Nuswab for GC/CT JENNIE, [facility] appointment 11/07. discuss ptl precaution, increase fluid, discuss diet and weight. rtc 4 week obc 12/04/24 -?-?-?-?-?-?-?-?-?-?-?-?- 25w 4d 93.157 kg 120/75 absent unknown 25 145 absent Complains of increased nausea and vomiting. Patient reports the Diclegis was not helping so she asked mother for some Zofran and that seemed to help. Patient would like to start on Zofran. She complains of second trimester discomforts like a backache and ligament pain. Sometimes low pelvic pain. Patient had questions about disability plaque. Denies leaking or bleeding. Reports movement. Patient has a follow-up for maternal- medicine sono in 6 to 8 weeks. Third trimester labs today along with cystic fibrosis and spinal muscular atrophy screen. Discussed comfort measures for second trimester discomforts like yoga and Tylenol and massage for the back pain. Increase fluids. I started patient on Zofran 4 mg every 6 to 8 hours. Discussed diet and weight gain and return in 4 weeks OB check 01/01/25 -?-?-?-?-?-?-?-?-?-?-?-?- 29w 4d 95.424 kg 123/72 absent unknown 29 145 active Reports good movement. Patient is here today for unscheduled visit because of third trimester discomforts. Patient is scheduled for genetic counseling and MFM appointment is pending. Reviewed concerns and comfort measures with patient. Keep next appointment. Discussed diet and weight. Discussed labor. Kick count twice a day. I discussed comfort measures for dizziness. Increase protein and increase fluids. Keep next appointment 01/05/25 -?-?-?-?-?-?-?-?-?-?-?-?- 30w 1d 96.332 kg 108/66 absent cephalic 30 140 active Reports good movement. No complaints of labor. Denies leaking, bleeding, contractions. Low-dose baby as pirin. Discussed labor precautions. Keep appointment with follow-up to M. Discussed diet and weight gain. Patient declined Tdap today and return in 2 weeks OB check 01/20/25 -?-?-?-?-?-?-?-?-?-?-?-?- 32w 2d 97.692 kg 114/66 absent cephalic 32 140 active f/u mfm 02/20, c/o spots on lower leg that itch at night. noted several small, round,pink, lesion, good boarders. Fetus active. Reports good movement. Denies leaking, bleeding, contractions Cholestas is labs. Nystatin 100,[address] on lesions twice a day. Discussed handwashing and prevention of spreading. Discussed labor precautions. Kick count twice a day. And keep MFM appointment in January. Return in 2 weeks OB check 02/03/25 -?-?-?-?-?-?-?-?-?-?-?-?- 34w 2d 100.471 kg 117/74 absent cephalic 34 14 0 active patient was seen at [facility] for possible SROM. amniosure-. given beta methasone and will get #2 tonight. Reports good movement. Denies leaking or bleeding. Complains of swelling in her feet. Denies headache or blurred vision No itching today. Reminded to get her second betamethasone at [facility]. Discussed labor precautions. Kick count. Group B strep next visit. Comfort measures for pedal swelling. Discussed labor precautions. Return in a week OB check and GBS 02/09/25 -?-?-?-?-?-?-?-?-?-?-?-?- 35w 1d 103.873 kg 109/71 occasional cephalic 35 145 active 2+ swollen feet and ankles, DTR2+, occ uc. fetus active, denies leaking, bleeding uc, no epigast keisha pain, increased head ache, no visual changes TDAP, PIH lab, 24 ht urine, comfort measure for swollen feet, GBS, discuss labor precaution, fkc bid. rtc 1 week KARTHIKEYAN Calculator Estimated Delivery Date Method Current WG Current Estimate 03/15/25 Ultrasound #1 35w 1d Other Estimates 04/02/25 LMP (Certain) 32w 4d 03/15/25 Ultrasound #2 35w 1d 03/15/25 Manual 35w 1d final KARTHIKEYAN: 02/28 10/22 Notes Visit Date: 01/01/25 Last Updated by: Anjana Foster CNM JENNIE GC/CT-, Nuswab plus-, A+,abs-, rpr;;nr, RUB IMM< hbsag-,hiv-,HC-, 1 hr gtt: 144, 3 hr gtt: normal/1 value high, NIPT-, SMA+/CF- Visit Date: 12/04/24 Last Updated by: Anjana Foster CNM 24 yo . sono 08/22/24: IUP 10w5. EDC: 03/15/25 JENNIE: GC/CT-. +BV. tx with flagyl Visit Date: 09/15/24 Last Updated by: Anjana Foster CNM 09/08/24: +CT/GC-, A+,abs-, rpr;;nr, rub imm, hbsag-, hiv-, HC-, , NIPT-/boy, carrier screen- Office Procedures OBC Clinic LOC & Office Proc's Nursing/Assessment Patient Status: Established Patient OB Clinic Nursing Assessment: Medication Reconciliation, Update PMH in EMR and Vital Signs OB Clinic Coordination of Care: Complex Care and Chronic Disease 1-5, Education Complex Pt/Fam, Consent,records obtained, informed consent, Lab and Imaging orders and Staff clarify orders Special Needs: Heart tones Miscellaneous Interventions: Culture Specimen Collection Established Patient Charge Established Patient Point Assignment: 150 Established Patient Point Charge: EP Level 4 (120-155) Injection/Vaccine Admin SQ Im Injection: Yes Immunizations diphth,pertus(acell),tetanus 2.5 Lf unit-8 mcg-5 Lf/0.5mL IM syringe Performing Provider: Anjana Foster CNM Performing Location: [facility] Administered by: Cha Meyers MA on 02/09/25 13:45 Dose Route Admin Location Dispensed Lot Number Expiration Date Pack age NDC NDC Makeup Artist 0.5 mL IM Left Deltoid 0.5 mL [id number] 03/27/27 [id number] [employer] VIS Given Date VIS Provided VIS Publication Date 02/09/25 Single Vaccine 24 Eligibility Eligibility Date Funding Source [facility] Assessment & Plan Diagnosis / Problem List (1) Encounter for care in third trimester of first : Status: Acute Plan discussed kick count twice a day. Discussed PIH precautions and danger signs and symptoms. Tired Tylenol as needed for headache. Discussed diet and patient to decrease salt and increase proteins. Increase fluids. GBS today. Tdap today. Return in a week OB check Additional Plan Follow Up: 1 Week (obc)
== END 2025-02-09 13:23 | disposition home or self-care (01) ==
LOC: HODSOBC 12:55
PROVIDERS: Supervising Provider Advanced Practice Midwife; Visit Provider Advanced Practice Midwife
DX: O09.893 Supervision of other high risk pregnancies, third trimester (principal); O99.891 Other specified diseases and conditions complicating pregnancy; R22.43 Localized swelling, mass and lump, lower limb, bilateral; Z3A.35 35 weeks gestation of pregnancy; Z23 Encounter for immunization; Z36.85 Encounter for antenatal screening for Streptococcus B
CPT/HCPCS: 90471; 90715; 96372; 99214; G0463

== ENCOUNTER 2025-02-19 11:26 | Outpatient (AMB) | payer MEDICAID, SELFPAY ==
[2025-02-19 11:35] VITALS: BP 125/80; PULSE 73; RESP 14; TEMP 36.6; O2SAT 98; BMI 36.7
--- NOTE | 2025-02-19 11:35 | OBCLNT_ITS ---
Vital Signs 02/19/25 11:35 Height 1.68 m Height Method Stated Weight 103.589 kg Weight Measurement Method Standing Scale BMI 36.7 BP 125/80 Blood Pressure Source Automatic Cuff Blood Pressure Location Left Upper Arm Position Sitting Respiration 14 Pulse 73 Pulse Source Monitor Temp 97.8 F Temp Source Oral Pulse Oximetry (%) 98 Oxygen Delivery Method Room Air Allergies/Home Meds Allergies & Medications Allergies No Known Allergies Allergy (Verified 02/19/25 11:35) Medication Reconciliation vitamin-ferrous fumarate 28 mg iron-folic acid 800 mcg tablet ( Vitamins with Minerals) 1 tab PO QDAY 60 days #60 tabs 10/02/24 [Rx Confirmed 02/19/25] aspirin 81 mg tablet,delayed release (Adult Aspirin Regimen) 81 mg PO QDAY #60 tabs 01/05/25 [Rx Confirmed 02/19/25] Intake Visit Data Collection New Patient or Established: Established Patient (seen at [facility] within 3 years) Reason for Visit:: CARE Seen by Clinical Staff ONLY (RN/MA): No Scow Captain Required: No Do You Feel Safe at Home: Yes Authorities Contacted: N/A PCP or OBGYN visit in last 3 months: Yes Hx Now: Yes Are you currently on any form of Control: No Pain Present Currently: No Pain Scale Used: Martinez-Whatley/Numerical Pain scale:: 0 Smoking Status Smoking Status: Never smoker Immunizations Flu Vaccine in the Last 12 Months: No Flu Vaccine Exclusion Criteria: No Exclusion Criteria Questionnaires Covid-19 Vaccine Questionnaire Has patient been vacinated for Covid-19 Have you been vacinated for Covid-19: No PHQ-9 PHQ-2 Over the last 2 weeks, how often have you been bothered by any of the following problems? 1. Little interest or pleasure in doing things: not at all 2. Feeling down, depressed, or hopeless: not at all Total score: 0 PHQ-9 3. Trouble falling or staying asleep, or sleeping too much: Not at all 4. Feeling tired or having little energy: Not at all 5. Poor appetite or overeating: Not at all 6. Feeling bad about yourself - or that you are a failure or have let yourself or your family down: Not at all 7. Trouble concentrating on things, such as reading the newspaper or watching television: Not at all 8. Moving or speaking so slowly that other people could have noticed? - Or the opposite - being so fidgety or restless that you have been moving around a lot more than usual: not at all 9. Thoughts that you would be better off or of hurting yourself in some way: Not at all Total score: 0 Source: Developed by Drs. Tree Guidry, Annie Deleon, Hamlet Luna and colleagues, with an educational tasneem from [employer]. Depression screen completed yes Social History Living Situation History Lives With: Family Housing: House Tobacco History Smoking Status: Never smoker Second Hand Smoke Exposure: No Alcohol History Alcohol Intake: Never Domestic Abuse History Do You Feel Safe at Home: Yes Care OB Visit Log OB Flowsheet Initial Weight: Not Recorded Date -?-?-?-?-?-?-?-?-?-?-?-?- EGA Weight BP Alb Glu CTX Pres Fundal ht FHR Mov Dilation Station Effacement Hx Notes Visit Note 09/02/24 -?-?-?-?-?-?-?-?-?-?-?-?- 12w 2d 84.141 kg 121/77 121/77 absent 12 145 absent 24 yo for OBI, no bleeding or sab complaints. No PMH,no Social habit,no surgery. sono 08/22: fibroid 3.7 uterus mass. schedule Mfm sono, ob panel, NIPT,carrier screen today 24 yo for OBI, no bleed ing or sab complaints. No PMH,no Social habit,no surgery. sono 08/22: fibroid 3.7 uterus mass. schedule Mfm sono, ob panel, NIPT,carrier screen today, start iron bid, diclegesis for nausea bid 09/15/24 -?-?-?-?-?-?-?-?-?-?-?-?- 14w 1d 85.445 kg 123/70 absent 14 135 ab sent patient here with partner for + CT. discussed + CT with patient. I also discussed other labs and NIPT. Zithromax 1 gm to patient and partner. no sex x 1 week. condom x 2 week. discuss safe sex practices. RTC 4 week for JENNIE, preg verification given. mfm appointment pending, RTC 4 week. wrong dates, discussed dates 10/02/24 -?-?-?-?-?-?-?-?-?-?-?-?- 16w 4d 85.899 kg 114/75 absent unknown 16 146 absent + fm, denies LOF,bleeding or cramps. taking PNV JENNIE for chlamydia NV, refill PNV, AFP today . anatomy scan 11/07/24. rtc 4 week, sab precaution 11/06/24 -?-?-?-?-?-?-?-?-?-?-?-?- 21w 4d 89.981 kg 126/76 absent unknown 20 145 absent + fm, no c/o leaking,no bleeding. OCC uc, fetus active Nuswab for GC/CT JENNIE, mfm appointment 11/07. discuss ptl precaution, increase fluid, discuss diet and weight. rtc 4 week obc 12/04/24 -?-?-?-?-?-?-?-?-?-?-?-?- 25w 4d 93.157 kg 120/75 absent unknown 25 145 absent Complains of increased nausea and vomiting. Patient reports the Diclegis was not helping so she asked mother for some Zofran and that seemed to help. Patient would like to start on Zofran. She complains of second trimester discomforts like a backache and ligament pain. Sometimes low pelvic pain. Patient had questions about disability plaque. Denies leaking or bleeding. Reports movement. Patient has a follow-up for maternal- medicine sono in 6 to 8 weeks. Third trimester labs today along with cystic fibrosis and spinal muscular atrophy screen. Discussed comfort measures for second trimester discomforts like yoga and Tylenol and massage for the back pain. Increase fluids. I started patient on Zofran 4 mg every 6 to 8 hours. Discussed diet and weight gain and return in 4 weeks OB check 01/01/25 -?-?-?-?-?-?-?-?-?-?-?-?- 29w 4d 95.424 kg 123/72 absent unknown 29 145 active Reports good movement. Patient is here today for unscheduled visit because of third trimester discomforts. Patient is scheduled for genetic counseling and MFM appointment is pending. Reviewed concerns and comfort measures with patient. Keep next appointment. Discussed diet and weight. Discussed labor. Kick count twice a day. I discussed comfort measures for dizziness. Increase protein and increase fluids. Keep next appointment 01/05/25 -?-?-?-?-?-?-?-?-?-?-?-?- 30w 1d 96.332 kg 108/66 absent cephalic 30 140 active Reports good movement. No complaints of labor. Denies leaking, bleeding, contractions. Low-dose baby as pirin. Discussed labor precautions. Keep appointment with follow-up to [facility]. Discussed diet and weight gain. Patient declined Tdap today and return in 2 weeks OB check 01/20/25 -?-?-?-?-?-?-?-?-?-?-?-?- 32w 2d 97.692 kg 114/66 absent cephalic 32 140 active f/u mfm 02/20, c/o spots on lower leg that itch at night. noted several small, round,pink, lesion, good boarders. Fetus active. Reports good movement. Denies leaking, bleeding, contractions Cholestas is labs. Nystatin 100,[address] on lesions twice a day. Discussed handwashing and prevention of spreading. Discussed labor precautions. Kick count twice a day. And keep [facility] appointment in January. Return in 2 weeks OB check 02/03/25 -?-?-?-?-?-?-?-?-?-?-?-?- 34w 2d 100.471 kg 117/74 absent cephalic 34 14 0 active patient was seen at [facility] for possible SROM. amniosure-. given beta methasone and will get #2 tonight. Reports good movement. Denies leaking or bleeding. Complains of swelling in her feet. Denies headache or blurred vision No itching today. Reminded to get her second betamethasone at [facility]. Discussed labor precautions. Kick count. Group B strep next visit. Comfort measures for pedal swelling. Discussed labor precautions. Return in a week OB check and GBS 02/09/25 -?-?-?-?-?-?-?-?-?-?-?-?- 35w 1d 103.873 kg 109/71 occasional cephalic 35 145 active 2+ swollen feet and ankles, DTR2+, occ uc. fetus active, denies leaking, bleeding uc, no epi gastric pain, increased head ache, no visual changes TDAP, PIH lab, 24 ht urine, comfort measure for swollen feet, GBS, discuss labor precaution, fkc bid. rtc 1 week 02/19/25 -?-?-?-?--?-?-?-?-?-?-?-?- 36w 4d 103.589 kg 125/80 occasional cephalic 36 145 active Continued swelling of feet and ankles. Denies blurred vision or epigastric pain. Patient plans to deliver at [facility]. Reports good movement. Denies leaking or bleeding. Increased contractions and pressure. Discussed labor precautions. Discussed kick count. Discussed PIH precautions. We reviewed her PIH labs and urine. I sent patient to labor and delivery today to monitor blood pressure and do PIH labs and a complete OB sono. Return in a week OB check KARTHIKEYAN Calculator Estimated Delivery Date Method Current WG Current Estimate 03/15/25 Ultrasound #1 36w 4d Other Estimates 04/02/25 LMP (Certain) 34w 0d 03/15/25 Ultrasound #2 36w 4d 03/15/25 Manual 36w 4d final KARTHIKEYAN: 02/28 10/22 Notes Visit Date: 02/19/25 Last Updated by: Anjana Foster CNM 02/19: GBS- Visit Date: 01/01/25 Last Updated by: Anjana Foster CNM JENNIE GC/CT-, Nuswab plus-, A+,abs-, rpr;;nr, RUB IMM< hbsag-,hiv-,HC-, 1 hr gtt: 144, 3 hr gtt: normal/1 value high, NIPT-, SMA+/CF- Visit Date: 12/04/24 Last Updated by: Anjana Foster CNM 24 yo . sono 08/22/24: IUP 10w5. EDC: 03/15/25 JENNIE: GC/CT-. +BV. tx with flagyl Visit Date: 09/15/24 Last Updated by: Anjana Foster CNM 09/08/24: +CT/GC-, A+,abs-, rpr;;nr, rub imm, hbsag-, hiv-, HC-, , NIPT-/boy, carrier screen- Office Procedures OBC Clinic LOC & Office Proc's Nursing/Assessment Patient Status: Established Patient OB Clinic Nursing Assessment: Medication Reconciliation, Update PMH in EMR and Vital Signs OB Clinic Coordination of Care: Complex Care and Chronic Disease 1-5, Consent,records obtained, informed consent, Education Simp Pt/Fam, 1 Ins Authorization, Lab and Imaging orders, Results/Orders obtained and Staff clarify orders Special Needs: Heart tones Established Patient Charge Established Patient Point Assignment: 150 Established Patient Point Charge: EP Level 4 (120-155) Assessment & Plan Diagnosis / Problem List (1) Encounter for care in third trimester of first : Status: Acute Plan PIH labs and complete OB at [facility] labor and delivery today. Discussed labor precautions. Kick count twice a day. I reviewed PIH signs and symptoms. ER precautions. Discussed diet, weight gain and salt intake. Return in a week for OB check Additional Plan Follow Up: 1 Week (obc)
== END 2025-02-19 12:13 | disposition home or self-care (01) ==
LOC: HODSOBC 11:26
PROVIDERS: Supervising Provider Advanced Practice Midwife; Visit Provider Advanced Practice Midwife
DX: O09.893 Supervision of other high risk pregnancies, third trimester (principal); O99.891 Other specified diseases and conditions complicating pregnancy; R22.43 Localized swelling, mass and lump, lower limb, bilateral; Z3A.36 36 weeks gestation of pregnancy
CPT/HCPCS: 99214; G0463

== ENCOUNTER 2025-02-19 12:49 | Outpatient (CLI) | payer MEDICAID, SELFPAY ==
[2025-02-19] VITALS (23 sets, daily range): BP systolic 102–127; BP diastolic 55–75; PULSE 58–76; RESP 17–98; TEMP 36.8; O2SAT 97–99; BMI 36.8
--- NOTE | 2025-02-19 13:04 | XR_ITS ---
Examination: Complete OB ultrasound greater than 14 weeks Date and time of exam: February 19, 2025, 1317 hours INDICATIONS: -induced hypertension, unknown size and dates Findings: Viable intrauterine single fetus with single amniotic sac presentation cephalic Cardiac motion 137 bpm Placenta anterior grade 3 Vertical cord insertion seen Amniotic fluid index 9.7 cm Ovaries obscured by bowel gas. Composite estimated gestational age based on BPD, head circumference, abdominal circumference, femur length is 37 weeks 3 days Estimated weight 3056.5 g. Survey of intracranial anatomy, spinal anatomy, abdominal anatomy, four-chamber heart performed with no abnormalities identified. Impression: Viable intrauterine gestation in cephalic presentation.
[2025-02-19 14:19] LABS: Collection Type, Urine Clean Catch
[2025-02-19 14:22] LABS: Basophils # (Auto) 0.0 Thou/mm3 (0.0-0.2); Basophils % (Auto) 0 % (0-2.5); Eosinophils # (Auto) 0.1 Thou/mm3 (0.0-0.5); Eosinophils % (Auto) 1 % (0-10); Hematocrit 33.8 % (36.0-46.0); Hemoglobin 11.1 g/dL (12.0-16.0); Immature Granulocytes Auto 0.04 Thou/mm3 (0.00-0.00); Lymphocytes # (Auto) 2.2 Thou/mm3 (1.0-4.8); Lymphocytes % (Auto) 30 % (10-50); Mean Corpuscular HGB Conc 32.8 g/dl (31.0-37.0); Mean Corpuscular Hemoglobin 29.5 pg (25.0-35.0); Mean Corpuscular Volume 90 fL (80-100); Monocytes # (Auto) 0.5 Thou/mm3 (0.0-0.8); Monocytes % (Auto) 7 % (0-12); Neutrophils # (Auto) 4.5 Thou/mm3 (1.8-7.7); Neutrophils % (Auto) 61 % (37-80); Nucleated Red Blood Cell # 0.00 Thou/mm3 (0.00-0.00); Nucleated Red Blood Cell % 0 /100 WBC (0); Platelet Count 167 Thou/mm3 (140-440); RDW Standard Deviation 52.0 fL (36.4-46.3); Red Blood Count 3.76 Miln/mm3 (4.00-5.20); White Blood Count 7.4 Thou/mm3 (3.6-11.0)
[2025-02-19 14:36] LABS: Bacteria,Urine Rare; Bilirubin,Urine Negative (Negative); Blood,Urine Negative (Negative); Clarity,Urine Clear (Clear/Hazy); Color,Urine Yellow (Lt Yel-Yel); Creatinine,Random Urine 148 mg/dL (30-125); Glucose, Urine Negative (Negative); Ketones,Urine Trace (Negative); Leukocyte Esterase,Urine Negative (Negative); Nitrite,Urine Negative (Negative); PH,Urine 5.5 (5.0-7.0); Protein Total, Random Urine 30 mg/dL (1-14); Protein,Urine Trace (Neg - Trace); RBC,Urine 2 /hpf (0-3); Specific Gravity,Urine 1.023 (1.001-1.035); Squamous Epithelial Cell,Urine 6 /hpf (0-5); Urobilinogen,Urine Negative mg/dL (0.0-1.0); WBC,Urine 4 /hpf (0-5)
[2025-02-19 14:43] LABS: Fibrinogen 525 mg/dL (175-375); INR 0.9 (0.9-1.3); Partial Thromboplastin Time 27.2 Seconds (22.0-36.0); Prothrombin Time 10.0 Seconds (9.0-12.2)
[2025-02-19 15:00] LABS: Alanine Aminotransferase 10 U/L (10-49); Albumin, Serum 3.7 gm/dL (3.5-5.0); Albumin/Globulin Ratio 1.5 (1.2-2.2); Alkaline Phosphatase 258 U/L (46-116); Anion Gap 13 (7-16); Aspartate Amino Transferase 14 U/L (0-34); BUN/Creatinine Ratio 10 Ratio (12-20); Bilirubin,Total 0.3 mg/dL (0.3-1.2); Blood Urea Nitrogen 5 mg/dL (9-23); Calcium 8.9 mg/dL (8.3-10.6); Calcium (Corrected) 9.1 mg/dL (8.5-10.1); Carbon Dioxide 19.7 mMol/L (20.0-31.0); Chloride 107 mMol/L (98-107); Creatinine (Component) 0.5 mg/dL (0.6-1.3); Estimated Creatinine Clearance 207.1 mL/min (>60); Globulin 2.4 gm/dL (2.3-3.5); Glucose 72 mg/dL (74-106); LDH (Lactate Dehydrogenase) 209 U/L (120-246); Osmolality,Calculated 275 (275-295); Potassium 3.9 mMol/L (3.4-5.1); Sodium 140 mMol/L (136-145); Total Protein 6.1 gm/dL (5.7-8.2); Uric Acid 5.7 mg/dL (3.1-7.8); eGFR > 60 See Note
== END 2025-02-19 15:10 | disposition home or self-care (01) ==
LOC: S4S1 12:50 → S4SX 12:50
PROVIDERS: Referring Provider Advanced Practice Midwife; Visit Provider Advanced Practice Midwife
DX: Z34.83 Encounter for supervision of other normal pregnancy, third trimester (principal); Z36.9 Encounter for antenatal screening, unspecified; Z3A.37 37 weeks gestation of pregnancy
CPT/HCPCS: 36415; 59025; 76805; 80053; 81001; 82570; 83615; 84156; 84550; 85025; 85384; 85610; 85730

== ENCOUNTER 2025-02-24 08:51 | Outpatient (AMB) | payer MEDICAID, SELFPAY ==
--- NOTE | 2025-02-24 08:55 | OBCLNT_ITS ---
Vital Signs 02/24/25 08:59 Height 1.68 m Height Method Stated Weight 105.687 kg Weight Measurement Method Standing Scale BMI 37.5 BP 125/76 Blood Pressure Source Automatic Cuff Blood Pressure Location Left Upper Arm Position Sitting Respiration 16 Pulse 83 Pulse Source Monitor Temp 98.1 F Temp Source Oral Pulse Oximetry (%) 97 Oxygen Delivery Method Room Air Allergies/Home Meds Allergies & Medications Allergies No Known Allergies Allergy (Verified 02/24/25 09:01) Medication Reconciliation vitamin-ferrous fumarate 28 mg iron-folic acid 800 mcg tablet ( Vitamins with Minerals) 1 tab PO QDAY 60 days #60 tabs 10/02/24 [Rx Confirmed 02/24/25] aspirin 81 mg tablet,delayed release (Adult Aspirin Regimen) 81 mg PO QDAY #60 tabs 01/05/25 [Rx Confirmed 02/24/25] Intake Visit Data Collection New Patient or Established: Established Patient (seen at [facility] within 3 years) Reason for Visit:: CARE Seen by Clinical Staff ONLY (RN/MA): No Historical Interpreter Required: No Do You Feel Safe at Home: Yes Authorities Contacted: N/A PCP or OBGYN visit in last 3 months: Yes Hx Now: Yes Are you currently on any form of Control: No Pain Present Currently: No Pain Scale Used: Martinez-Whatley/Numerical Pain scale:: 0 Smoking Status Smoking Status: Never smoker Immunizations Flu Vaccine in the Last 12 Months: Yes Flu Vaccine Exclusion Criteria: Already Received Questionnaires Covid-19 Vaccine Questionnaire Has patient been vacinated for Covid-19 Have you been vacinated for Covid-19: No PHQ-9 PHQ-2 Over the last 2 weeks, how often have you been bothered by any of the following problems? 1. Little interest or pleasure in doing things: not at all 2. Feeling down, depressed, or hopeless: not at all Total score: 0 PHQ-9 3. Trouble falling or staying asleep, or sleeping too much: Not at all 4. Feeling tired or having little energy: Not at all 5. Poor appetite or overeating: Not at all 6. Feeling bad about yourself - or that you are a failure or have let yourself or your family down: Not at all 7. Trouble concentrating on things, such as reading the newspaper or watching television: Not at all 8. Moving or speaking so slowly that other people could have noticed? - Or the opposite - being so fidgety or restless that you have been moving around a lot more than usual: not at all 9. Thoughts that you would be better off or of hurting yourself in some way: Not at all Total score: 0 Source: Developed by Drs. Tree Guidry, Annie Deleon, Hamlet Luna and colleagues, with an educational tasneem from [employer]. Depression screen completed yes Social History Living Situation History Lives With: Family Housing: House Tobacco History Smoking Status: Never smoker Second Hand Smoke Exposure: No Alcohol History Alcohol Intake: Never Domestic Abuse History Do You Feel Safe at Home: Yes Care OB Visit Log OB Flowsheet Initial Weight: Not Recorded Date -?-?-?-?-?-?-?-?-?-?-?-?- EGA Weight BP Alb Glu CTX Pres Fundal ht FHR Mov Dilation Station Effacement Hx Notes Visit Note 09/02/24 -?-?-?-?-?-?-?-?-?-?-?-?- 12w 2d 84.141 kg 121/77 121/77 absent 12 145 absent 24 yo for OBI, no bleeding or sab complaints. No PMH,no Social habit,no surgery. sono 08/22: fibroid 3.7 uterus mass. schedule Mfm sono, ob panel, NIPT,carrier screen today 24 yo for OBI, no bleed ing or sab complaints. No PMH,no Social habit,no surgery. sono 08/22: fibroid 3.7 uterus mass. schedule Mfm sono, ob panel, NIPT,carrier screen today, start iron bid, diclegesis for nausea bid 09/15/24 -?-?-?-?-?-?-?-?-?-?-?-?- 14w 1d 85.445 kg 123/70 absent 14 135 ab sent patient here with partner for + CT. discussed + CT with patient. I also discussed other labs and NIPT. Zithromax 1 gm to patient and partner. no sex x 1 week. condom x 2 week. discuss safe sex practices. RTC 4 week for JENNIE, preg verification given. mfm appointment pending, RTC 4 week. wrong dates, discussed dates 10/02/24 -?-?-?-?-?-?-?-?-?-?-?-?- 16w 4d 85.899 kg 114/75 absent unknown 16 146 absent + fm, denies LOF,bleeding or cramps. taking PNV JENNIE for chlamydia NV, refill PNV, AFP today . anatomy scan 11/07/24. rtc 4 week, sab precaution 11/06/24 -?-?-?-?-?-?-?-?-?-?-?-?- 21w 4d 89.981 kg 126/76 absent unknown 20 145 absent + fm, no c/o leaking,no bleeding. OCC uc, fetus active Nuswab for GC/CT JENNIE, mfm appointment 11/07. discuss ptl precaution, increase fluid, discuss diet and weight. rtc 4 week obc 12/04/24 -?-?-?-?-?-?-?-?-?-?-?-?- 25w 4d 93.157 kg 120/75 absent unknown 25 145 absent Complains of increased nausea and vomiting. Patient reports the Diclegis was not helping so she asked mother for some Zofran and that seemed to help. Patient would like to start on Zofran. She complains of second trimester discomforts like a backache and ligament pain. Sometimes low pelvic pain. Patient had questions about disability plaque. Denies leaking or bleeding. Reports movement. Patient has a follow-up for maternal- medicine sono in 6 to 8 weeks. Third trimester labs today along with cystic fibrosis and spinal muscular atrophy screen. Discussed comfort measures for second trimester discomforts like yoga and Tylenol and massage for the back pain. Increase fluids. I started patient on Zofran 4 mg every 6 to 8 hours. Discussed diet and weight gain and return in 4 weeks OB check 01/01/25 -?-?-?-?-?-?-?-?-?-?-?-?- 29w 4d 95.424 kg 123/72 absent unknown 29 145 active Reports good movement. Patient is here today for unscheduled visit because of third trimester discomforts. Patient is scheduled for genetic counseling and MFM appointment is pending. Reviewed concerns and comfort measures with patient. Keep next appointment. Discussed diet and weight. Discussed labor. Kick count twice a day. I discussed comfort measures for dizziness. Increase protein and increase fluids. Keep next appointment 01/05/25 -?-?-?-?-?-?-?-?-?-?-?-?- 30w 1d 96.332 kg 108/66 absent cephalic 30 140 active Reports good movement. No complaints of labor. Denies leaking, bleeding, contractions. Low-dose baby as pirin. Discussed labor precautions. Keep appointment with follow-up to [facility]. Discussed diet and weight gain. Patient declined Tdap today and return in 2 weeks OB check 01/20/25 -?-?-?-?-?-?-?-?-?-?-?-?- 32w 2d 97.692 kg 114/66 absent cephalic 32 140 active f/u mfm 02/20, c/o spots on lower leg that itch at night. noted several small, round,pink, lesion, good boarders. Fetus active. Reports good movement. Denies leaking, bleeding, contractions Cholestas is labs. Nystatin 100,[address] on lesions twice a day. Discussed handwashing and prevention of spreading. Discussed labor precautions. Kick count twice a day. And keep [facility] appointment in January. Return in 2 weeks OB check 02/03/25 -?-?-?-?-?-?-?-?-?-?-?-?- 34w 2d 100.471 kg 117/74 absent cephalic 34 14 0 active patient was seen at [facility] for possible SROM. amniosure-. given beta methasone and will get #2 tonight. Reports good movement. Denies leaking or bleeding. Complains of swelling in her feet. Denies headache or blurred vision No itching today. Reminded to get her second betamethasone at [facility]. Discussed labor precautions. Kick count. Group B strep next visit. Comfort measures for pedal swelling. Discussed labor precautions. Return in a week OB check and GBS 02/09/25 -?-?-?-?-?-?-?-?-?-?-?-?- 35w 1d 103.873 kg 109/71 occasional cephalic 35 145 active 2+ swollen feet and ankles, DTR2+, occ uc. fetus active, denies leaking, bleeding uc, no epigast keisha pain, increased head ache, no visual changes TDAP, PIH lab, 24 ht urine, comfort measure for swollen feet, GBS, discuss labor precaution, fkc bid. rtc 1 week 02/19/25 -?-?-?-?-?-?-?-?--?-?-?-?- 36w 4d 103.589 kg 125/80 occasional cephalic 36 145 active Continued swelling of feet and ankles. Denies blurred vision or epigastric pain. Patient plans to deliver at [facility]. Reports good movement. Denies leaking or bleeding. Increased contractions and pressure. Discussed labor precautions. Discussed kick count. Discussed PIH precautions. We reviewed her PIH labs and urine. I sent patient to labor and delivery today to monitor blood pressure and do PIH labs and a complete OB sono. Return in a week OB check 02/24/25 -?-?-?-?-?-?-?-?-?-?-?-?- 37w 2d 105.687 kg 125/76 occasional cephalic 38 146 active Reports good movement. Increased contractions and pressure. Denies leaking or bleeding. Denies PIH complaints. Swelling is improved. Kick count twice a day. Avoid salts and sugary foods. Increase activity and walking. Increase fluids. Discussed labor precautions. KARTHIKEYAN Calculator Estimated Delivery Date Method Current WG Current Estimate 03/15/25 Ultrasound #1 37w 2d Other Estimates 04/02/25 LMP (Certain) 34w 5d 03/15/25 Ultrasound #2 37w 2d 03/15/25 Manual 37w 2d final KARTHIKEYAN: 02/28 10/22 Notes Visit Date: 02/24/25 Last Updated by: Anjnaa Foster CNM 02/20 sono: EFW: 99%, projected 4500gm, /normal CHARI, vertex Visit Date: 02/19/25 Last Updated by: Anjana Foster CNM 02/19: GBS- Visit Date: 01/01/25 Last Updated by: Anjana Foster CNM JENNIE GC/CT-, Nuswab plus-, A+,abs-, rpr;;nr, RUB IMM< hbsag-,hiv-,HC-, 1 hr gtt: 144, 3 hr gtt: normal/1 value high, NIPT-, SMA+/CF- Visit Date: 12/04/24 Last Updated by: Anjana Foster CNM 24 yo . sono 08/22/24: IUP 10w5. EDC: 03/15/25 JENNIE: GC/CT-. +BV. tx with flagyl Visit Date: 09/15/24 Last Updated by: Anjana Foster CNM 09/08/24: +CT/GC-, A+,abs-, rpr;;nr, rub imm, hbsag-, hiv-, HC-, , NIPT-/boy, carrier screen- Office Procedures OBC Clinic LOC & Office Proc's Nursing/Assessment Patient Status: Established Patient OB Clinic Nursing Assessment: Medication Reconciliation, Update PMH in EMR and Vital Signs OB Clinic Coordination of Care: Complex Care and Chronic Disease 1-5, Consent,records obtained, informed consent, Education Simp Pt/Fam, Lab and Imaging orders, Results/Orders obtained and Staff clarify orders Special Needs: Heart tones Established Patient Charge Established Patient Point Assignment: 135 Established Patient Point Charge: EP Level 4 (120-155) Assessment & Plan Diagnosis / Problem List (1) Encounter for care in third trimester of first : Status: Acute Plan Labor precautions reviewed. Discussed kick counts twice a day. Increase fluids. Avoid salt and sugary foods. Continue prenatals Additional Plan Follow Up: 1 Week (obc)
[2025-02-24 08:59] VITALS: BP 125/76; PULSE 83; RESP 16; TEMP 36.7; O2SAT 97; BMI 37.5
== END 2025-02-24 09:49 | disposition home or self-care (01) ==
LOC: HODSOBC 08:51
PROVIDERS: Supervising Provider Advanced Practice Midwife; Visit Provider Advanced Practice Midwife
DX: Z34.83 Encounter for supervision of other normal pregnancy, third trimester (principal); Z3A.37 37 weeks gestation of pregnancy
CPT/HCPCS: 99214; G0463

== ENCOUNTER 2025-03-03 14:23 | Outpatient (AMB) | payer MEDICAID, SELFPAY ==
[2025-03-03 14:31] VITALS: BP 121/76; PULSE 67; RESP 18; TEMP 36.4; O2SAT 96; BMI 37.4
--- NOTE | 2025-03-03 14:31 | AMB.OBVISIT ---
Vital Signs 03/03/25 14:31 Height 1.68 m Height Method Stated Weight 105.687 kg Weight Measurement Method Standing Scale BMI 37.4 BP 121/76 Blood Pressure Source Automatic Cuff Blood Pressure Location Right Upper Arm Position Sitting Respiration 18 Pulse 67 Pulse Source Monitor Temp 97.6 F Temp Source Temporal Artery Scan Pulse Oximetry (%) 96 Oxygen Delivery Method Room Air Allergies/Home Meds Allergies & Medications Allergies No Known Allergies Allergy (Verified 03/03/25 14:32) Medication Reconciliation vitamin-ferrous fumarate 28 mg iron-folic acid 800 mcg tablet ( Vitamins with Minerals) 1 tab PO QDAY 60 days #60 tabs 10/02/24 [Rx Confirmed 03/03/25] aspirin 81 mg tablet,delayed release (Adult Aspirin Regimen) 81 mg PO QDAY #60 tabs 01/05/25 [Rx Confirmed 03/03/25] Intake Visit Data Collection New Patient or Established: Established Patient (seen at [facility] within 3 years) Reason for Visit:: OBC Seen by Clinical Staff ONLY (RN/MA): No Supply Chain Systems Manager Required: No Do You Feel Safe at Home: Yes Authorities Contacted: N/A PCP or OBGYN visit in last 3 months: Yes Date of Last PCP or OBGYN visit: 02/24/25 Hx Now: Yes Are you currently on any form of Control: No Pain Present Currently: Yes Pain Location: Abdomen (CRAMPING) Pain Scale Used: Martinez-Whatley/Numerical Pain scale:: 5 Smoking Status Smoking Status: Never smoker Immunizations Flu Vaccine in the Last 12 Months: No Flu Vaccine Exclusion Criteria: No Exclusion Criteria Questionnaires Covid-19 Vaccine Questionnaire Has patient been vacinated for Covid-19 Have you been vacinated for Covid-19: No PHQ-9 PHQ-2 Over the last 2 weeks, how often have you been bothered by any of the following problems? 1. Little interest or pleasure in doing things: not at all 2. Feeling down, depressed, or hopeless: not at all Total score: 0 PHQ-9 3. Trouble falling or staying asleep, or sleeping too much: Not at all 4. Feeling tired or having little energy: Not at all 5. Poor appetite or overeating: Not at all 6. Feeling bad about yourself - or that you are a failure or have let yourself or your family down: Not at all 7. Trouble concentrating on things, such as reading the newspaper or watching television: Not at all 8. Moving or speaking so slowly that other people could have noticed? - Or the opposite - being so fidgety or restless that you have been moving around a lot more than usual: not at all 9. Thoughts that you would be better off or of hurting yourself in some way: Not at all Total score: 0 If you checked off any problems, how difficult have these problems made it for you to do your work, take care of things at home, or get along with other people?: not difficult at all Source: Developed by Drs. Tree Guid[employer], Annie Deleon, Hamlet Luna and colleagues, with an educational tasneem from [employer]. Depression screen completed yes Social History Living Situation History Marital Status: Life Partner Lives With: Family Housing: House Tobacco History Smoking Status: Never smoker Second Hand Smoke Exposure: No Alcohol History Alcohol Intake: Never Domestic Abuse History Do You Feel Safe at Home: Yes Care OB Visit Log OB Flowsheet Initial Weight: Not Recorded Date <del>?</del> EGA Weight BP Alb Glu CTX Pres Fundal ht FHR Mov Dilation Station Effacement Hx Notes Visit Note 09/02/24 <del>?</del> 12w 2d 84.141 kg 121/77 121/77 absent 12 145 absent 24 yo for OBI, no bleeding or sab complaints. No PMH,no Social habit,no surgery. sono 08/22: fibroid 3.7 uterus mass. schedule Mfm sono, ob panel, NIPT,carrier screen today 24 yo for OBI, no bleeding or sab complaints. No PMH,no Social habit,no surgery. sono 08/22: fibroid 3.7 uterus mass. schedule Mfm sono, ob panel, NIPT,carrier screen today, start iron bid, diclegesis for nausea bid 09/15/24 <del>?</del> 14w 1d 85.445 kg 123/70 absent 14 135 absent patient here with partner for + CT. discussed + CT with patient. I also discussed other labs and NIPT. Zithromax 1 gm to patient and partner. no sex x 1 week. condom x 2 week. discuss safe sex practices. RTC 4 week for JENNIE, preg verification given. mfm appointment pending, RTC 4 week. wrong dates, discussed dates 10/02/24 <del>?</del> 16w 4d 85.899 kg 114/75 absent unknown 16 146 absent + fm, denies LOF,bleeding or cramps. taking PNV JENNIE for chlamydia NV, refill PNV, AFP today . anatomy scan 11/07/24. rtc 4 week, sab precaution 11/06/24 <del>?</del> 21w 4d 89.981 kg 126/76 absent unknown 20 145 absent + fm, no c/o leaking,no bleeding. OCC uc, fetus active Nuswab for GC/CT JENNIE, mfm appointment 11/07. discuss ptl precaution, increase fluid, discuss diet and weight. rtc 4 week obc 12/04/24 <del>?</del> 25w 4d 93.157 kg 120/75 absent unknown 25 145 absent Complains of increased nausea and vomiting. Patient reports the Diclegis was not helping so she asked mother for some Zofran and that seemed to help. Patient would like to start on Zofran. She complains of second trimester discomforts like a backache and ligament pain. Sometimes low pelvic pain. Patient had questions about disability plaque. Denies leaking or bleeding. Reports movement. Patient has a follow-up for maternal- medicine sono in 6 to 8 weeks. Third trimester labs today along with cystic fibrosis and spinal muscular atrophy screen. Discussed comfort measures for second trimester discomforts like yoga and Tylenol and massage for the back pain. Increase fluids. I started patient on Zofran 4 mg every 6 to 8 hours. Discussed diet and weight gain and return in 4 weeks OB check 01/01/25 <del>?</del> 29w 4d 95.424 kg 123/72 absent unknown 29 145 active Reports good movement. Patient is here today for unscheduled visit because of third trimester discomforts. Patient is scheduled for genetic counseling and MFM appointment is pending. Reviewed concerns and comfort measures with patient. Keep next appointment. Discussed diet and weight. Discussed labor. Kick count twice a day. I discussed comfort measures for dizziness. Increase protein and increase fluids. Keep next appointment 01/05/25 <del>?</del> 30w 1d 96.332 kg 108/66 absent cephalic 30 140 active Reports good movement. No complaints of labor. Denies leaking, bleeding, contractions. Low-dose baby aspirin. Discussed labor precautions. Keep appointment with follow-up to [facility]. Discussed diet and weight gain. Patient declined Tdap today and return in 2 weeks OB check 01/20/25 <del>?</del> 32w 2d 97.692 kg 114/66 absent cephalic 32 140 active f/u mfm 02/20, c/o spots on lower leg that itch at night. noted several small, round,pink, lesion, good boarders. Fetus active. Reports good movement. Denies leaking, bleeding, contractions Cholestasis labs. Nystatin 100,[address] on lesions twice a day. Discussed handwashing and prevention of spreading. Discussed labor precautions. Kick count twice a day. And keep MF appointment in January. Return in 2 weeks OB check 02/03/25 <del>?</del> 34w 2d 100.471 kg 117/74 absent cephalic 34 140 active patient was seen at [facility] for possible SROM. amniosure-. given beta methasone and will get #2 tonight. Reports good movement. Denies leaking or bleeding. Complains of swelling in her feet. Denies headache or blurred vision No itching today. Reminded to get her second betamethasone at [facility]. Discussed labor precautions. Kick count. Group B strep next visit. Comfort measures for pedal swelling. Discussed labor precautions. Return in a week OB check and GBS 02/09/25 <del>?</del> 35w 1d 103.873 kg 109/71 occasional cephalic 35 145 active 2+ swollen feet and ankles, DTR2+, occ uc. fetus active, denies leaking, bleeding uc, no epigastric pain, increased head ache, no visual changes TDAP, PIH lab, 24 ht urine, comfort measure for swollen feet, GBS, discuss labor precaution, fkc bid. rtc 1 week 02/19/25 <del>?</del> 36w 4d 103.589 kg 125/80 occasional cephalic 36 145 active Continued swelling of feet and ankles. Denies blurred vision or epigastric pain. Patient plans to deliver at [facility]. Reports good movement. Denies leaking or bleeding. Increased contractions and pressure. Discussed labor precautions. Discussed kick count. Discussed PIH precautions. We reviewed her PIH labs and urine. I sent patient to labor and delivery today to monitor blood pressure and do PIH labs and a complete OB sono. Return in a week OB check 02/24/25 <del>?</del> 37w 2d 105.687 kg 125/76 occasional cephalic 38 146 active Reports good movement. Increased contractions and pressure. Denies leaking or bleeding. Denies PIH complaints. Swelling is improved. Kick count twice a day. Avoid salts and sugary foods. Increase activity and walking. Increase fluids. Discussed labor precautions. 03/03/25 <del>?</del> 38w 2d 105.687 kg 121/76 occasional cephalic 40 145 active Reports good movement. Increased contractions. And pressure. Denies leaking, bleeding denies any existence of PIH signs or symptoms. Increased swelling lower extremities. DTRs 2+ Reports good movement. Increased contractions. And pressure. Denies leaking, bleeding denies any existence of PIH signs or symptoms. Increased swelling lower extremities. DTRs 2+. Patient still plans to deliver at [facility] Schedule induction for March 19, 2025. Discussed labor precautions. Discussed PIH precautions. Kick count twice a day. Watch the salty foods. And return in a week OB check KARTHIKEYAN Calculator Estimated Delivery Date Method Current WG Current Estimate 03/15/25 Ultrasound #1 38w 2d Other Estimates 04/02/25 LMP (Certain) 35w 5d 03/15/25 Ultrasound #2 38w 2d 03/15/25 Manual 38w 2d final KARTHIKEYAN: 03/15/25 Notes Visit Date: 02/24/25 Last Updated by: Anjana Foster CNM 02/20 sono: EFW: 99%, projected 4500gm, /normal CHARI, vertex Visit Date: 02/19/25 Last Updated by: Anjana Foster CNM 02/19: GBS- Visit Date: 01/01/25 Last Updated by: Anjana Foster CNM JENNIE GC/CT-, Nuswab plus-, A+,abs-, rpr;;nr, RUB IMM< hbsag-,hiv-,HC-, 1 hr gtt: 144, 3 hr gtt: normal/1 value high, NIPT-, SMA+/CF- Visit Date: 12/04/24 Last Updated by: Anjana Foster CNM 24 yo . sono 08/22/24: IUP 10w5. EDC: 03/15/25 JENNIE: GC/CT-. +BV. tx with flagyl Visit Date: 09/15/24 Last Updated by: Anjana Foster CNM 09/08/24: +CT/GC-, A+,abs-, rpr;;nr, rub imm, hbsag-, hiv-, HC-, , NIPT-/boy, carrier screen- Office Procedures OBC Clinic LOC & Office Proc's Nursing/Assessment Patient Status: Established Patient OB Clinic Nursing Assessment: Medication Reconciliation, Update PMH in EMR and Vital Signs OB Clinic Coordination of Care: Complex Care and Chronic Disease 1-5, Education Complex Pt/Fam, Consent,records obtained, informed consent and Staff clarify orders Special Needs: Heart tones Miscellaneous Interventions: Pelvic no cultures Established Patient Charge Established Patient Point Assignment: 130 Established Patient Point Charge: EP Level 4 (120-155) Assessment & Plan Diagnosis / Problem List (1) Encounter for care in third trimester of first : Status: Acute Plan Discussed labor precautions. Discussed kick count twice a day. Decrease the salt. Increase fluids. Scheduled for induction March 19, 2025. Discussed delivering at [facility]. Discussed PIH precautions. Return in a week OB check Additional Plan Follow Up: 1 Week (obc)
== END 2025-03-03 15:00 | disposition home or self-care (01) ==
LOC: HODSOBC 14:23
PROVIDERS: Supervising Provider Advanced Practice Midwife; Visit Provider Advanced Practice Midwife
DX: O09.893 Supervision of other high risk pregnancies, third trimester (principal); O47.1 False labor at or after 37 completed weeks of gestation; O99.891 Other specified diseases and conditions complicating pregnancy; R22.43 Localized swelling, mass and lump, lower limb, bilateral; Z3A.38 38 weeks gestation of pregnancy
CPT/HCPCS: 99214; G0463

== ENCOUNTER 2025-03-20 15:23 | Outpatient (AMB) | payer MEDICAID, SELFPAY ==
--- NOTE | 2025-03-20 15:46 | AMBOBPPN_ITS ---
Vital Signs 03/20/25 15:47 Height 1.68 m Height Method Stated Weight 90.889 kg Weight Measurement Method Standing Scale BMI 32.2 BP 120/81 Blood Pressure Source Automatic Cuff Blood Pressure Location Left Upper Arm Position Sitting Respiration 18 Pulse 89 Pulse Source Monitor Temp 97.2 F Temp Source Oral Pulse Oximetry (%) 98 Oxygen Delivery Method Room Air Allergies/Home Meds Allergies & Medications Allergies No Known Allergies Allergy (Verified 03/20/25 15:47) Medication Reconciliation vitamin-ferrous fumarate 28 mg iron-folic acid 800 mcg tablet ( Vitamins with Minerals) 1 tab PO QDAY 60 days #60 tabs 10/02/24 [Rx Confirmed 03/20/25] aspirin 81 mg tablet,delayed release (Adult Aspirin Regimen) 81 mg PO QDAY #60 tabs 01/05/25 [Rx Confirmed 03/20/25] Intake Visit Data Collection New Patient or Established: Established Patient (seen at [facility] within 3 years) Reason for Visit:: PP Seen by Clinical Staff ONLY (RN/MA): No Patient Account Specialist Required: No Do You Feel Safe at Home: Yes Authorities Contacted: N/A PCP or OBGYN visit in last 3 months: Yes Date of Last PCP or OBGYN visit: 03/03/25 Hx Now: No Are you currently on any form of Control: No Pain Present Currently: No Pain Scale Used: Martinez-Whatley/Numerical Pain scale:: 0 Smoking Status Smoking Status: Never smoker Immunizations Flu Vaccine in the Last 12 Months: No Flu Vaccine Exclusion Criteria: No Exclusion Criteria Questionnaires Covid-19 Vaccine Questionnaire Has patient been vacinated for Covid-19 Have you been vacinated for Covid-19: Yes Social History Living Situation History Lives With: Family Housing: House Tobacco History Smoking Status: Never smoker Second Hand Smoke Exposure: No Alcohol History Alcohol Intake: Never Domestic Abuse History Do You Feel Safe at Home: Yes EPDS - PP Depression Screening [place] Pospartum Depression Screen I have been able to laugh and see the funny side of things: (0) As much as I always could I have looked forward with enjoyment to things: (0) As much as I ever did I have blamed myself unnecessarily when things went wrong: (0) No, never I have been anxious or worried for no good reason: (0) No, not at all I have felt scared or panicky for no very good reason: (0) No, not at all Things have been getting on top of me: (0) No, I have been coping as well as ever I have been so unhappy that I have had difficulty sleeping: (0) No, not at all I have felt sad or miserable: (0) No, not at all I have been so unhappy that I have been crying: (0) No, never The thought of harming myself has occurred to me: (0) Never Total Score: EPDS Score: Referral is indicated for score of 9 or more, suicidal, or if provider believes patient is depressed regardless of score.: 0 EPDS completed yes Care OB Visit Log OB Flowsheet Initial Weight: Not Recorded Date -?-?-?-?-?-?-?-?-?-?-?-?- EGA Weight BP Alb Glu CTX Pres Fundal ht FHR Mov Dilation Station Effacement Hx Notes Visit Note 09/02/24 -?-?-?-?-?-?-?-?-?-?-?-?- 12w 2d 84.141 kg 121/77 121/77 absent 12 145 absent 24 yo for OBI, no bleeding or sab complaints. No PMH,no Social habit,no surgery. sono 08/22: fibroid 3.7 uterus mass. schedule Mfm sono, ob panel, NIPT,carrier screen today 24 yo for OBI, no bleed ing or sab complaints. No PMH,no Social habit,no surgery. sono 08/22: fibroid 3.7 uterus mass. schedule Mfm sono, ob panel, NIPT,carrier screen today, start iron bid, diclegesis for nausea bid 09/15/24 -?-?-?-?-?-?-?-?-?-?-?-?- 14w 1d 85.445 kg 123/70 absent 14 135 ab sent patient here with partner for + CT. discussed + CT with patient. I also discussed other labs and NIPT. Zithromax 1 gm to patient and partner. no sex x 1 week. condom x 2 week. discuss safe sex practices. RTC 4 week for JENNIE, preg verification given. mfm appointment pending, RTC 4 week. wrong dates, discussed dates 10/02/24 -?-?-?-?-?-?-?-?-?-?-?-?- 16w 4d 85.899 kg 114/75 absent unknown 16 146 absent + fm, denies LOF,bleeding or cramps. taking PNV JENNIE for chlamydia NV, refill PNV, AFP today . anatomy scan 11/07/24. rtc 4 week, sab precaution 11/06/24 -?-?-?-?-?-?-?-?-?-?-?-?- 21w 4d 89.981 kg 126/76 absent unknown 20 145 absent + fm, no c/o leaking ,no bleeding. OCC uc, fetus active Nuswab for GC/CT JENNIE, mfm appointment 11/07. discuss ptl precaution, increase fluid, discuss diet and weight. rtc 4 week obc 12/04/24 -?-?-?-?-?-?-?-?-?-?-?--?- 25w 4d 93.157 kg 120/75 absent unknown 25 145 absent Complains of increased nausea and vomiting. Patient reports the Diclegis was not helping so she asked mother for some Zofran and that seemed to help. Patient would like to start on Zofran. She complains of second trimester discomforts like a backache and ligament pain. Sometimes low pelvic pain. Patient had questions about disability plaque. Denies leaking or bleeding. Reports movement. Patient has a follow-up for maternal- medicine sono in 6 to 8 weeks. Third trimester labs today along with cystic fibrosis and spinal muscular atrophy screen. Discussed comfort measures for second trimester discomforts like yoga and Tylenol and massage for the back pain. Increase fluids. I started patient on Zofran 4 mg every 6 to 8 hours. Discussed diet and weight gain and return in 4 weeks OB check 01/01/25 -?-?-?-?-?-?-?-?-?-?-?-?- 29w 4d 95.424 kg 123/72 absent unknown 29 145 active Reports good movement. Patient is here today for unscheduled visit because of third trimester discomforts. Patient is scheduled for genetic counseling and MFM appointment is pending. Reviewed concerns and comfort measures with patient. Keep next appointment. Discussed diet and weight. Discussed labor. Kick count twice a day. I discussed comfort measures for dizziness. Increase protein and increase fluids. Keep next appointment 01/05/25 -?-?-?-?-?-?-?-?-?-?-?-?- 30w 1d 96.332 kg 108/66 absent cephalic 30 140 active Reports good movement. No complaints of labor. Denies leaking, bleeding, contractions. Low-dose baby as pirin. Discussed labor precautions. Keep appointment with follow-up to [facility]. Discussed diet and weight gain. Patient declined Tdap today and return in 2 weeks OB check 01/20/25 -?-?-?-?-?-?-?-?-?-?-?-?- 32w 2d 97.692 kg 114/66 absent cephalic 32 140 active f/u mfm 02/20, c/o spots on lower leg that itch at night. noted several small, round,pink, lesion, good boarders. Fetus active. Reports good movement. Denies leaking, bleeding, contractions Cholestas is labs. Nystatin 100,[address] on lesions twice a day. Discussed handwashing and prevention of spreading. Discussed labor precautions. Kick count twice a day. And keep [facility] appointment in January. Return in 2 weeks OB check 02/03/25 -?-?-?-?-?-?-?-?-?-?-?-?- 34w 2d 100.471 kg 117/74 absent cephalic 34 14 0 active patient was seen at [facility] for possible SROM. amniosure-. given beta methasone and will get #2 tonight. Reports good movement. Denies leaking or bleeding. Complains of swelling in her feet. Denies headache or blurred vision No itching today. Andrew nded to get her second betamethasone at [facility]. Discussed labor precautions. Kick count. Group B strep next visit. Comfort measures for pedal swelling. Discussed labor precautions. Return in a week OB check and GBS 02/09/25 -?-?-?-?-?-?-?-?-?-?-?-?- 35w 1d 103.873 kg 109/71 occasional cephalic 35 145 active 2+ swollen feet and ankles, DTR2+, occ uc. fetus active, denies leaking, bleeding uc, no epigastric pain, increased head ache, no visual changes TDAP, PIH lab, 24 ht urine, comfort measure for swollen feet, GBS, discuss labor precaution, fkc bid. rtc 1 week 02/19/25 -?-?-?-?-?-?-?-?-?-?-?-?- 36w 4d 103.589 kg 125/80 occasional cephalic 36 145 active Continued swelling of feet and ankles. Denies blurred vision or epigastric pain. Patient plans to deliver at [facility]. Reports good movement. Denies leaking or bleeding. Increased contractions and pressure. Discussed labor precautions. Discussed kick count. Discussed PIH precautions. We reviewed her PIH labs and urine. I sent patient to labor and delivery today to monitor blood pressure and do PIH labs and a complete OB sono. Return in a week OB check 02/24/25 -?-?-?-?-?-?-?-?-?-?-?-?- 37w 2d 105.687 kg 125/76 occasional cephalic 38 146 active Reports good movement. Increased contractions and pressure. Denies leaking or bleeding. Denies PIH complaints. Swelling is improved. Kick count twice a day. Avoid salts and sugary foods. Increase activity and walking. Increase fluids. Discussed labor precautions. 03/03/25 -?-?-?-?-?-?-?-?-?-?-?-?- 38w 2d 105.687 kg 121/76 occasional cephalic 40 145 active Reports good movement. Increased contractions. And pressure. Denies leaking, bleeding denies any existence of PIH signs or symptoms. Increased swelling lower extremities. DTRs 2+ Reports good movement. Increased contractions. And pressure. Denies leaking, bleeding denies any existence of PIH signs or symptoms. Increased swelling lower extremities. DTRs 2+. Patient still plans to deliver at [facility] Schedule induction for March 19, 2025. Discussed labor precautions. Discussed PIH precautions. Kick count twice a day. Watch the salty foods. And return in a week OB check KARTHIKEYAN Calculator Estimated Delivery Date Method Current WG Current Estimate 03/15/25 Ultrasound #1 40w 5d Other Estimates 04/02/25 LMP (Certain) 38w 1d 03/15/25 Ultrasound #2 40w 5d 03/15/25 Manual 40w 5d final KARTHIKEYAN: 02/28 10/22 Notes Visit Date: 02/24/25 Last Updated by: Anjana Foster CNM 02/20 sono: EFW: 99%, projected 4500gm, /normal CHARI, vertex Visit Date: 02/19/25 Last Updated by: Anjana Foster CNM 02/19: GBS- Visit Date: 01/01/25 Last Updated by: Anjana Foster CNM JENNIE GC/CT-, Nuswab plus-, A+,abs-, rpr;;nr, RUB IMM< hbsag-,hiv-,HC-, 1 hr gtt: 144, 3 hr gtt: normal/1 value high, NIPT-, SMA+/CF- Visit Date: 12/04/24 Last Updated by: Anjana Foster CNM 24 yo . sono 08/22/24: IUP 10w5. EDC: 03/15/25 JENNIE: GC/CT-. +BV. tx with flagyl Visit Date: 09/15/24 Last Updated by: Anjana Foster CNM 09/08/24: +CT/GC-, A+,abs-, rpr;;nr, rub imm, hbsag-, hiv-, HC-, , NIPT-/boy, carrier screen- HPI Interval History: 25-year-old 2 para 0 for check. Patient had a primary section February. The was for arrest of descent. The she had a baby boy weighing 9 pounds 8 ounces. Patient is breast-feeding. She is happy. No depression. The father of the baby is involved and supportive. Patient is unsure of what she wants for control. Denies any signs or symptoms of infection. She reports that she has no problems with her incision. No complaints of pain. Was or delivery considered high risk: No Delivery type: (primary) Was labor induced: no Gestational age at delivery (weeks): 39 Delivery date: 03/08/25 Delivering provider: [facility] Delivery complications: No Delivery complications comment: none Is patient infant: Yes Is patient sexually active: No Contraception planned: unsure Review of Systems Review of Systems ROS limited to current [employer] complaints: Yes Exam Narrative Physical exam: Normal heart rate and rhythm. Lungs clear no wheezes. Abdomen is soft nontender. Uterus well involuted. Perineum is intact no lacerations. No swelling. Small lochia. Negative Homans' sign. 2+ DTRs. No edema no swelling. Breasts are soft. both breast full, no mastitis, low transverse incision intact, no redness, no drainage,no s/s of infection Office Procedures [facility] LOC & Office Proc's Nursing/Assessment Patient Status: Established Patient OB Clinic Nursing Assessment: Medication Reconciliation, Update PMH in EMR and Vital Signs OB Clinic Coordination of Care: Consent,records obtained, informed consent, Education Simp Pt/Fam, Lab and Imaging orders, Results/Orders obtained and Staff clarify orders Established Patient Charge Established Patient Point Assignment: 80 Established Patient Point Charge: EP Level 3 (80-115) Assessment & Plan Diagnosis / Problem List (1) 2 weeks follow-up: Status: Acute Plan Continue to encourage ambulation. No heavy lifting. No driving. Continue to drink vitamins. Increase fluids. Reviewed latching and breast-feeding with patient. I offered contraception. Patient was not ready to talk about yet and I discussed signs symptoms of infection and ER precautions and return in 4 weeks for control Care Reviewed delivery summary and any complications: Yes Uterus involuted to: 2 below Perineal / incision healing noted: No Screened for depression: Yes Depression counseling provided: No Discussed family planning & contraception: Yes Contraception planned: unsure Counseling on safe resumption of sexual activity: Yes Discussed and concerns (describe), provided support: Yes Referred to treatment specialist: No Counseled on good nutrition, hydration, and self care: Yes Reviewed vaccine status: Yes Chronic & current problems reconciled on problem list: Yes care discussed; questions answered: feeding and sleep Follow up: routine/prn Additional counseling & anticipatory guidance provided: Discussed wound care. Discussed JUAREZ care. No driving, no heavy lifting. Increase rest continue prenatals increase fluids return in 4 weeks for
[2025-03-20 15:47] VITALS: BP 120/81; PULSE 89; RESP 18; TEMP 36.2; O2SAT 98; BMI 32.2
== END 2025-03-20 16:35 | disposition home or self-care (01) ==
LOC: HODSOBC 15:23
PROVIDERS: Supervising Provider Advanced Practice Midwife; Visit Provider Advanced Practice Midwife
DX: Z39.2 Encounter for routine postpartum follow-up (principal); Z39.1 Encounter for care and examination of lactating mother
CPT/HCPCS: 99213; G0463